=== PATIENT | male | born 1940 | race Caucasian/White ===

== ENCOUNTER 2017-01-23 13:32 | Inpatient (IN) | payer OTHER ==
[~2017-01-23] VITALS: Ht 182.9 cm; Wt 54.4 kg
--- NOTE | ~2017-01-23 | EKG ---
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1940 Requested By: Raudel Ward Order Number: [id number] MD: Adis Tolliver Measurements Intervals [place] Rate: 93 P: 79 SC: 173 QRS: -89 QRSD: 101 T: 78 QT: 361 QTc: 449 Interpretive Statements Sinus rhythm Left anterior hemiblock Anterior infarct, old Compared to ECG 08/14/2016 16:32:08 Right ventricular conduction delay now present atrial premature complexes no longer present Electronically Signed On 01-25-2017 17:48:42 CDT by Adis Tolliver [email or web address] <ELECTRONICALLY SIGNED> By: Adis Tolliver MD, [facility] 01/25/17 1748 1345 1345 Adis Tolliver MD, [facility] /EPI
--- NOTE | ~2017-01-23 | S ---
[facility] [place] [address] SURGICAL PATH RPT PROCEDURE Name: BARTOLOME CARRILLO Room #: 427-P ADM IN M.R.#: [id number] Admission: 01/23/17 Date of : 40 Discharge: Report #: [id number] Path Case #: [id number] PATHOLOGY REPORT COLLECTION DATE: 01/25/2017 RECEIVED DATE: 01/25/2017 SUBMITTING PHYS: Dr. Moises Wheatley OTHER PHYS: Dr. Monika Bull SPECIMEN(S) RECEIVED: A.Gastric bx * * * * * * * * * * * * FINAL DIAGNOSIS: Gastric mucosa, "gastric", endoscopic biopsy: - Mild reactive gastropathy. - Negative for intestinal metaplasia or atrophy. - Negative for Helicobacter pylori. COMMENT: Helicobacter pylori immunohistochemical stain performed on block A1 - negative. (IUV:db; 01/26/2017) PATHOLOGIST: Adrienne Chirinos M.D. REPORT ELECTRONICALLY SIGNED BY: Adrienne Chirinos M.D. DATE/TIME: 01/26/2017 17:13 * * * * * * * * * * * * GROSS PATHOLOGY: Received in formalin labeled "Bartolome Carrillo gastric BX," are three segments of moya soft tissue measuring 1.1 x 0.3 x 0.2 cm in aggregate dimensions and ranging from 0.3 to 0.5 cm in maximum dimension. The specimen is submitted entirely in cassette A1. (TSD; 01/25/2017) CLINICAL HISTORY: Pre-OP DX: Anemia, melena Post-OP DX: Gastritis, hiatal hernia INITIAL CPT CODE(S): A; 16219, 28804 Professional services performed by [facility] at [facility] [address] [place] [address] SURGICAL PATH RPT PROCEDURE Name: PACO CARRILLOTan Smith Room #: 427-P ADM IN .R.#: [id number] Admission: 01/23/17 Date of : 40 Discharge: Report #: [id number] Path Case #: [id number] [address], [place] [address] Technical services performed by [facility] at [address] [place] [address], [facility] [address], [place] [address]. [facility] [address] [place] [address] PHONE: [phone] DIRECTOR: Jose Schmid M.D. * * * END OF REPORT * * *
--- NOTE | ~2017-01-23 | S ---
[facility] [place] [address] SURGICAL PATH RPT PROCEDURE Name: BARTOLOME CARRILLO Room #: 427-P [facility] IN M.R.#: [id number] Admission: 01/23/17 Date of : 40 Discharge: 01/28/17 Report #: [id number] Path Case #: [id number] PATHOLOGY REPORT COLLECTION DATE: 01/27/2017 RECEIVED DATE: 01/28/2017 SUBMITTING PHYS: Dr. Michelle Renee OTHER PHYS: Dr. Monika Bull SPECIMEN(S) RECEIVED: A.Polyp at cecum * * * * * * * * * * * * FINAL DIAGNOSIS: Polyp, at cecum, endoscopic biopsy: - Tubular adenoma. - Negative for high-grade dysplasia. - Stalk base/inked margin with unremarkable mucosa. (IUV:sage; 02/01/2017) PATHOLOGIST: Adrienne Chirinos M.D. REPORT ELECTRONICALLY SIGNED BY: Adrienne Chirinos M.D. DATE/TIME: 02/01/2017 16:36 * * * * * * * * * * * * GROSS PATHOLOGY: Received in formalin labeled "Bartolome Carrillo, polyp at cecum," is a 0.7 x 0.4 x 0.5 cm polypoid piece of moya soft tissue. The margin is inked and the tissue is sectioned perpendicular to the margin and submitted in its entirety in cassette A1. (TSD; 01/28/2017) CLINICAL HISTORY: Pre-OP DX: Anemia Post-OP DX: Colon polyps, diverticulosis INITIAL CPT CODE(S): A; 12176 Professional services performed by [facility] at [facility] [address], [place] [address] Technical services performed by [facility] at [address] [place] [address]. [facility] [address] [place] [address] SURGICAL PATH RPT PROCEDURE Name: BARTOLOME CARRILLO S Room #: 427-P DIS IN .R.#: [id number] Admission: 01/23/17 Date of : 40 Discharge: 01/28/17 Report #: [id number] Path Case #: [id number] [facility] [address] [address] PHONE: [phone] DIRECTOR: Jose Schmid M.D. * * * END OF REPORT * * *
--- NOTE | ~2017-01-23 | P ---
[facility] [place] [address] PROCEDURE REPORT Name: TEA MURPHY Room #: 427-P ADM IN M.R.#: [id number] Admission: 01/23/17 Attend Phys: Monika Posey MD Discharge: Date of : 40 Report #: [id number] THIS REPORT FOR: //name// CC: Monika Bull MD DATE OF SERVICE: 01/27/2017 PATIENT OF: Dr. Monika Posey and Dr. Oscar Bull. PROCEDURE: Colonoscopy with snare polypectomy. INDICATION FOR PROCEDURE: We are evaluating his anemia and iron deficiency. Informed consent for this procedure was obtained prior to the administration of any medication. The risks of the procedure which include bleeding, perforation, infection, complications of sedation and the possibility I could miss something have been explained to the patient and he has indicated his consent by signing. Propofol was slowly titrated before and during this procedure for patient comfort by the anesthesia service. Digital rectal exam was performed and was unremarkable for any abnormalities. The Bilderon colonoscope was introduced through the anal sphincter and advanced under direct visualization to the ileocecal valve and the appendiceal orifice. Findings are noted on withdrawal of the scope. The cecum was identified by the presence of the ileocecal valve and the appendiceal orifice. There is a polyp present in the cecum that is 5 mm in size and sessile in nature and it is removed in toto with a hot snare and sent to pathology lab. Good hemostasis was noted after that polypectomy. No other abnormalities are seen in the cecum. It should be noted that the colon prep was poor and I spent probably an hour cleaning out the liquid black stool that was present in his colon in order to visualize the mucosa adequately. The ascending colonic mucosa appears normal on retroflex view and the ascending colon was normal. Hepatic flexure, normal mucosa. Transverse colon, normal mucosa. Splenic flexure, normal mucosa. Descending colon, uncomplicated diverticulosis is noted. Sigmoid colon, multiple uncomplicated diverticula are noted. Rectum, normal mucosa. Retroflex view did not reveal any abnormalities. The scope was withdrawn. The patient went to the recovery room in stable condition. He tolerated the procedure well. IMPRESSION: 1. Multiple uncomplicated diverticula on the left side of the colon. 2. A 5 mm sessile polyp removed from the cecum as above. [address] [address] PROCEDURE REPORT Name: TEA MURPHY Room #: 427-P [facility] IN ..#: [id number] Admission: 01/23/17 Attend Phys: Monika Posey MD Discharge: Date of : 40 Report #: [id number] Recommendations are to await the path report. We will also give him iron sucrose 200 mg IV today because he is iron deficient. He will need iron, TIBC, ferritin, and CBC every 3 months on a year-around basis from now on so that we can be sure we understand what his iron levels are and if they need to be replaced. It may be necessary for him to stay on oral iron and receive intermittent IV iron to maintain his hemoglobin. The patient refuses M2 capsule because he previously aspirated the M2 capsule into his lungs and it had to be removed by the school occupational therapist during a bronchoscopy. Thank you very much once again for allowing me to participate in his care, Dr. Posey and Dr. Bull. <ELECTRONICALLY SIGNED> By: Michelle Renee DO 01/27/171999 1412 1826 Michelle Renee DO /nt
[~2017-01-23 13:32] MED LIST: ACETAMINOPHEN325 M1 PO; ADVAIR HFA 1112 UNIT INH; ALBUTEROL2.5 MG/0.1 INH; ALLEGRA; ALLEGRA ALLERG180 MG PO; ALLEGRA180 MG PO; ASPIRIN EC325 M1 PO; AUGMENTIN 875875 MG PO; CARAFATE 1 GM TA1 G1 PO; CARDIZEM CD180 MG PO; CARDIZEM CD240 MG PO; COMBIVENT IN; COMBIVENT INH; COMBIVENT RESPIM4 GM INH; DOXYCYCLINE 10100 MG PO; DUONEB 2.5-0.5 M3 ML INH; FAMVIR500 MG PO; FORADIL 1212 MCG/KI1 INH; LEVAQUIN 250 M250 MG PO; LEVAQUIN 500 M500 M2 PO; LEVAQUIN 500 M500 M6 PO; LEVAQUIN 750 M750 MG PO; NEXIUM40 MG PO; NORCO 5-325 TA1 EACH PO; NYSTATIN 1100000 U/M SW&SWALLOW; PEPCID20 MG PO; PRED FORTE 1% EY5 M1 OP; PREDNISONE 10 M10 M1 PO; PREDNISONE 10 M10 MG; PREDNISONE 10 M10 MG PO; PREDNISONE 20 M20 MG PO; PROVENTIL HFA6.7 G1 INH; RAPAFLO8 MG PO; SEREVENT DISKU50 MCG IH; SYMBICORT160 MCG/4. INH; TYLENOL325 MG PO
[2017-01-23 13:33] VITALS: BP 145/90
[2017-01-23 14:30] LABS: HEMATOCRIT 35.8 % (42.0-52.0); HEMOGLOBIN 11.7 gm/dL (14.0-18.0); MCH 29.6 pg (26.0-34.0); MCHC 32.6 g/dL (28.0-37.0); MCV 90.6 fL (80.0-100.0); PLATELET COUNT 424 thou/uL (150-400); RBC 3.95 mil/uL (4.50-6.00); RDW 15.3 % (10.5-14.5); WBC 16.5 thou/uL (4.0-11.0)
[2017-01-23 14:33] LABS: ANION GAP 5 mmol/L (7-16); BUN 29 mg/dL (7-18); CALCIUM 9.2 mg/dL (8.5-10.1); CHLORIDE 104 mmol/L (98-107); CO2 33 mmol/L (21-32); CREATININE 0.7 mg/dL (0.7-1.3); GLUCOSE 108 mg/dL (74-106); SODIUM 142 mmol/L (136-145)
[2017-01-23 14:34] LABS: MANUAL DIFF YES
[2017-01-23 14:46] LABS: APTT 25.4 Seconds (24.5-32.8); PROTIME 10.5 Seconds (9.3-11.4)
[2017-01-23 14:55] LABS: ALBUMIN 3.8 g/dL (3.4-5.0); ALKALINE PHOSPHATASE 74 U/L (46-116); SGOT 22 U/L (15-37); SGPT 15 U/L (30-65); TOTAL BILIRUBIN 0.5 mg/dL (<0.1-1.0); TOTAL PROTEIN 6.7 g/dL (6.4-8.2); TROPONIN-I < 0.04 ng/mL (<0.04-0.07)
[2017-01-23 15:09] LABS: ABSOLUTE NEUTROPHILS 13.7 thou/uL (1.4-8.2); TOTAL CELL COUNT 100
[2017-01-23 15:40] VITALS: BP 134/82
[2017-01-23 16:20] VITALS: BP 140/74
[2017-01-23 20:30] VITALS: BP 115/60
[2017-01-24 04:30] VITALS: BP 128/76
[2017-01-24 04:58] LABS: HEMATOCRIT 30.3 % (42.0-52.0); HEMOGLOBIN 9.9 gm/dL (14.0-18.0); MCH 29.7 pg (26.0-34.0); MCHC 32.9 g/dL (28.0-37.0); MCV 90.3 fL (80.0-100.0); PLATELET COUNT 352 thou/uL (150-400); RBC 3.35 mil/uL (4.50-6.00); RDW 15.3 % (10.5-14.5); WBC 9.3 thou/uL (4.0-11.0)
[2017-01-24 05:16] LABS: MANUAL DIFF YES
[2017-01-24 05:25] LABS: CALCIUM 8.4 mg/dL (8.5-10.1); CREATININE 0.5 mg/dL (0.7-1.3); POTASSIUM 3.8 mmol/L (3.5-5.1)
[2017-01-24 07:32] VITALS: BP 143/81
[2017-01-24 08:38] LABS: ABSOLUTE NEUTROPHILS 8.9 thou/uL (1.4-8.2); TOTAL CELL COUNT 100
[2017-01-24 08:39] LABS: ANISOCYTOSIS 1+; OVALOCYTES 1+
[2017-01-24 16:37] VITALS: BP 131/72
[2017-01-24 20:18] VITALS: BP 121/68
[2017-01-25 04:21] VITALS: BP 124/75
[2017-01-25 04:46] LABS: HEMATOCRIT 28.7 % (42.0-52.0); HEMOGLOBIN 9.5 gm/dL (14.0-18.0); MCH 29.8 pg (26.0-34.0); MCHC 33.2 g/dL (28.0-37.0); MCV 89.8 fL (80.0-100.0); PLATELET COUNT 364 thou/uL (150-400); WBC 15.9 thou/uL (4.0-11.0)
[2017-01-25 04:49] LABS: MANUAL DIFF YES
[2017-01-25 05:10] LABS: CALCIUM 8.4 mg/dL (8.5-10.1); CREATININE 0.9 mg/dL (0.7-1.3)
[2017-01-25 08:44] LABS: ABSOLUTE NEUTROPHILS 15.6 thou/uL (1.4-8.2); PLATELET ESTIMATE NORMAL; TOTAL CELL COUNT 100
[2017-01-25 08:45] LABS: ANISOCYTOSIS SLIGHT
[2017-01-25 10:00] VITALS: BP 154/82
[2017-01-25 16:00] VITALS: BP 135/69
[2017-01-25 20:00] VITALS: BP 143/82
[2017-01-26 05:00] VITALS: BP 134/80
[2017-01-26 06:11] LABS: HEMATOCRIT 27.3 % (42.0-52.0); HEMOGLOBIN 9.3 gm/dL (14.0-18.0); MCH 30.7 pg (26.0-34.0); MCHC 33.9 g/dL (28.0-37.0); MCV 90.4 fL (80.0-100.0); PLATELET COUNT 357 thou/uL (150-400); RBC 3.02 mil/uL (4.50-6.00); RDW 15.4 % (10.5-14.5); WBC 17.5 thou/uL (4.0-11.0)
[2017-01-26 06:17] LABS: MANUAL DIFF YES
[2017-01-26 07:28] VITALS: BP 130/66
[2017-01-26 07:32] LABS: ABSOLUTE NEUTROPHILS 15.2 thou/uL (1.4-8.2); ANISOCYTOSIS 1+; HYPOCHROMASIA 1+; TOTAL CELL COUNT 100
[2017-01-26] MEDS ORDERED: LEVAQUIN 750 M750 MG PO (10:46)
[2017-01-26] MEDS ORDERED: PANTOPRAZOLE SO40 M1 PO (10:46)
[2017-01-26] MEDS ORDERED: PREDNISONE 10 M10 M1 PO (10:46)
[2017-01-26 12:10] LABS: % SATURATION 10 % (20-39); IRON 21 ug/dL (65-175); TIBC 215 ug/dL (250-450); UIBC 194 ug/dL
[2017-01-26 16:27] VITALS: BP 159/77
[2017-01-26 19:35] VITALS: BP 150/81
[2017-01-27 04:32] VITALS: BP 150/77
[2017-01-27 05:17] LABS: HEMATOCRIT 29.8 % (42.0-52.0); HEMOGLOBIN 9.9 gm/dL (14.0-18.0)
[2017-01-27 07:51] VITALS: BP 127/61
[2017-01-27 15:13] VITALS: BP 143/66
[2017-01-27 20:00] VITALS: BP 140/69
[2017-01-28 04:40] VITALS: BP 134/74
[2017-01-28 06:52] LABS: HEMATOCRIT 28.6 % (42.0-52.0); HEMOGLOBIN 9.6 gm/dL (14.0-18.0); MCH 30.2 pg (26.0-34.0); MCHC 33.5 g/dL (28.0-37.0); MCV 90.2 fL (80.0-100.0); RBC 3.17 mil/uL (4.50-6.00); RDW 15.5 % (10.5-14.5); WBC 9.9 thou/uL (4.0-11.0)
[2017-01-28 08:18] VITALS: BP 114/59
[2017-01-28 10:11] VITALS: BP 114/59
[2017-01-28 10:30] VITALS: BP 114/59
== END 2017-01-28 12:38 | disposition home or self-care (01) | DRG 377 ==
LOC: ER 13:32 → 4E 15:21 → EROBS 15:21 → 4E 16:46 → ENTRNSPT 01-28 12:25 → EDTRNSPTSTS 01-28 12:28 → 4E 01-28 12:38
PROVIDERS: Emergency Medicine; Internal Medicine; Internal Medicine Endocrinology, Diabetes & Metabolism; Internal Medicine Gastroenterology
PROC: 0DB68ZX Excision of Stomach, Via Natural or Artificial Opening Endoscopic, Diagnostic (ICD-10-PCS; principal; 2017-01-25)
PROC: 0DBH8ZX Excision of Cecum, Via Natural or Artificial Opening Endoscopic, Diagnostic (ICD-10-PCS; 2017-01-27)
DX: K92.2 Gastrointestinal hemorrhage, unspecified (principal); J18.9 Pneumonia, unspecified organism; E43 Unspecified severe protein-calorie malnutrition; J44.0 Chronic obstructive pulmonary disease with (acute) lower respiratory infection; J44.1 Chronic obstructive pulmonary disease with (acute) exacerbation; J96.11 Chronic respiratory failure with hypoxia; Z68.1 Body mass index [BMI] 19.9 or less, adult; K57.30 Diverticulosis of large intestine without perforation or abscess without bleeding; D12.0 Benign neoplasm of cecum; K29.70 Gastritis, unspecified, without bleeding; K44.9 Diaphragmatic hernia without obstruction or gangrene; D50.0 Iron deficiency anemia secondary to blood loss (chronic); G25.81 Restless legs syndrome; M19.90 Unspecified osteoarthritis, unspecified site; Z87.891 Personal history of nicotine dependence; Z79.899 Other long term (current) drug therapy; Z87.81 Personal history of (healed) traumatic fracture; Z85.46 Personal history of malignant neoplasm of prostate; Z87.11 Personal history of peptic ulcer disease; Z88.1 Allergy status to other antibiotic agents; Z88.8 Allergy status to other drugs, medicaments and biological substances; Z82.5 Family history of asthma and other chronic lower respiratory diseases
CPT/HCPCS: 10183; 62110; 62900; 70005

== ENCOUNTER → 2018-03-06 | Outpatient (CLI) | payer OTHER ==
[~2018-03-06] MED LIST changes: +PANTOPRAZOLE SO40 M1 PO; +PRADAXA150 MG PO
--- NOTE | ~2018-03-06 | PATH ---
[facility] [address] [place] [address] PATHOLOGY RPT PROCEDURE Name: TEA MURPHY Room #: REG LISA Rivers#: [id number] Admission: 03/06/18 Date of : 40 Discharge: Report #: [id number] Path Case #: [id number] Note [facility] Accession Number: [id number] TESTS RESULT FLAG UNITS REF RANGE LAB Clinician Provided Cytology Information No. of containers..01 Other (Miscellaneous) Source: 01 LLL BAL DIAGNOSIS: 02 LEFT LOWER LUNG, BAL NEGATIVE FOR MALIGNANT CELLS. NORMAL BRONCHIAL CELLS AND MACROPHAGES ARE PRESENT. PULMONARY MACROPHAGES (DUST CELLS) ARE PRESENT. THIS INTERPRETATION INCLUDES EVALUATION OF A CELL BLOCK. MARKED ACUTE INFLAMMATION. Signed out by: Adrienne Chirinos MD, Pathologist NPI- [id number] Performed by: Tonny Lindquist, Sleeping Car Conductor ([facility]) Gross description: 01 14ML, WHITE, CLOUDY /LCS FLAG LEGEND: L-Low Normal,H-High Normal,LL-Alert Low,HH-Alert High <-Panic Low,>-Panic High,A-Abnormal,AA-Critical Abnormal Performed at: [address] [place] [address] Ronan Hugo MD, [address] [place] [address] Adrienne Chirinos MD, Specimen Comment: A courtesy copy of this report has been sent to Specimen Comment: [phone]. Specimen Comment: A duplicate report has been generated due to demographic updates. Performed at: [address], [place], [place] [id number] MD Ronan Hugo MD Phone: [phone]
--- NOTE | ~2018-03-06 | PATH ---
[facility] [address] [place] [address] PATHOLOGY RPT PROCEDURE Name: TEA MURPHY Room #: REG LISA Stevenson.#: [id number] Admission: 03/06/18 Date of : 40 Discharge: Report #: [id number] Path Case #: [id number] Note [facility] Accession Number: [id number] TESTS RESULT FLAG UNITS REF RANGE LAB Clinician Provided Cytology Information No. of containers..01 Other (Miscellaneous) Source: LLL BRUSHING DIAGNOSIS: 02 LLL BRUSHING NEGATIVE FOR MALIGNANT CELLS. NORMAL BRONCHIAL CELLS AND MACROPHAGES ARE PRESENT. REACTIVE BRONCHIAL CELLS ARE PRESENT. SCANT CELLULARITY WITH AIR-DRYING ARTIFACT. Signed out by: 02 Adrienne Chirinos MD, Pathologist NPI- [id number] Performed by: 01 Tonny Lindquist, Die Casting Machine Operator ([facility]) FLAG LEGEND: L-Low Normal,H-High Normal,LL-Alert Low,HH-Alert High <-Panic Low,>-Panic High,A-Abnormal,AA-Critical Abnormal Performed at: [address] [place] [address] Ronan Hugo MD, [address] [address] Adrienne Chirinos MD, Specimen Comment: A courtesy copy of this report has been sent to Specimen Comment: [phone]. Specimen Comment: A duplicate report has been generated due to demographic updates. Performed at: [address], [place], [place] [id number] MD Ronan Hugo MD Phone: [phone]
--- NOTE | ~2018-03-06 | PATH ---
[facility] [address] [place] [address] PATHOLOGY RPT PROCEDURE Name: BARTOLOME CARRILLO Room #: REG [facility] M.R.#: [id number] Admission: 03/06/18 Date of : 40 Discharge: Report #: [id number] Path Case #: [id number] [facility] Accession Number: [id number] . 01 Material submitted: . [facility] TISSUE BIOPSY . 01 Clinical history: . Mass . 02 Diagnosis: Lung, left lower lobe, biopsy: - Benign alveolated lung parenchyma as well as benign bronchial mucosa. - No definite malignancy present. - Focal moderate chronic inflammation identified. - Reactive atypical squamous metaplasia overlying bronchial mucosa. LBQ/03/07/2018 . 02 Comment: The concurrent cytology specimen [id number], [id number], and [id number] showed similar findings. Please refer to separate reports for details. (IUV/db; 03/07/18) . 02 Electronically signed: . Adrienne Chirinos MD, Pathologist NPI- [id number] . 01 Gross description: . Received in formalin labeled "Bartolome Carrillo [facility] tissue biopsy," are multiple fragments of needle cores of moya soft tissue measuring 1.7 x 0.3 x 0.1 cm in aggregate dimensions. The specimen is filtered and entirely submitted in cassette A1. (TSD; 03/06/2018) TOB/TOB . 02 Pathologist provided ICD-10: J98.4 . 02 CPT . 314623 Specimen Comment: A courtesy copy of this report has been sent to Specimen Comment: [phone], . Specimen Comment: Report sent to / DR FRANCO Performed at: [address], [place] [id number] [place] [address] [place] [address] PATHOLOGY RPT PROCEDURE Name: BARTOLOME CARRILLO Room #: REG [facility].#: [id number] Admission: 03/06/18 Date of : 40 Discharge: Report #: [id number] Path Case #: [id number] MD Ronan Hugo MD Phone: [phone] Performed at: [address] [address] [place], [place] [id number] MD Adrienne Chirinos MD Phone: [phone]
--- NOTE | ~2018-03-06 | PATH ---
[facility] [address] [place] [address] PATHOLOGY RPT PROCEDURE Name: TEA MURPHY Room #: REG LISA Stevenson.#: [id number] Admission: 03/06/18 Date of : 40 Discharge: Report #: [id number] Path Case #: [id number] Note [facility] Accession Number: [id number] TESTS RESULT FLAG UNITS REF RANGE LAB Clinician Provided Cytology Information No. of containers..01 Other (Miscellaneous) Source: LLL BRUSHING DIAGNOSIS: 02 LLL BRUSHING NEGATIVE FOR MALIGNANT CELLS. NORMAL BRONCHIAL CELLS AND MACROPHAGES ARE PRESENT. PULMONARY MACROPHAGES (DUST CELLS) ARE PRESENT. Signed out by: 02 Ardienne Chirinos MD, Pathologist NPI- [id number] Performed by: 01 Tonny Lindquist, Pulp Grinder ([facility]) FLAG LEGEND: L-Low Normal,H-High Normal,LL-Alert Low,HH-Alert High <-Panic Low,>-Panic High,A-Abnormal,AA-Critical Abnormal Performed at: [address] [place] [address] Ronan Hugo MD, [address] [address] Adrienne Chirinos MD, Specimen Comment: A courtesy copy of this report has been sent to Specimen Comment: [phone]. Specimen Comment: A duplicate report has been generated due to demographic updates. Performed at: [address], [place], [place] [id number] MD Ronan Hugo MD Phone: [phone]
== END | disposition home or self-care (01) ==
LOC: CATH 07:15
DX: J98.4 Other disorders of lung (principal); J44.9 Chronic obstructive pulmonary disease, unspecified; Z88.1 Allergy status to other antibiotic agents; Z88.8 Allergy status to other drugs, medicaments and biological substances; Z79.899 Other long term (current) drug therapy; Z99.81 Dependence on supplemental oxygen; Z87.891 Personal history of nicotine dependence

== ENCOUNTER 2018-03-07 15:26 | Inpatient (IN) | payer OTHER ==
[~2018-03-07] VITALS: Ht 182.9 cm; Wt 55.8 kg
--- NOTE | ~2018-03-07 | EKG ---
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 QUEZADA : 1940 Requested By: Tanmay Brown Order Number: [id number] MD: Alton Parker Measurements Intervals [place] Rate: 122 P: 74 WI: 155 QRS: -87 QRSD: 101 T: -27 QT: 324 QTc: 462 Interpretive Statements Sinus tachycardia Atrial premature complexes Probable left atrial enlargement Left anterior fascicular block LVH with secondary repolarization abnormality Anterior infarct, old Baseline wander in lead(s) V2 Compared to ECG 03/08/2018 16:22:51 Electronically Signed On 03-10-2018 8:19:53 CDT by Alton Parker [email or web address] <ELECTRONICALLY SIGNED> By: Alton Parker MD 03/10/18 0819 171 17 Alton Parker MD /EPI
--- NOTE | ~2018-03-07 | EKG ---
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: KKODJOVI : 1940 Requested By: Js Ness Order Number: [id number] MD: Alton Parker Measurements Intervals [place] Rate: 119 P: 80 WI: 164 QRS: 261 QRSD: 109 T: 10 QT: 351 QTc: 494 Interpretive Statements Sinus tachycardia Left atrial enlargement Left anterior fascicular block Anterolateral infarct, old Baseline wander in lead(s) II,III,aVF Compared to ECG 01/23/2017 13:45:38 Atrial abnormality now present Sinus rhythm no longer present Myocardial infarct finding still present Electronically Signed On 03-07-2018 17:44:53 CDT by Alton Parker [email or web address] <ELECTRONICALLY SIGNED> By: Alton Parker MD 03/07/18 1744 1540 1540 Alton Parker MD /EPI
--- NOTE | ~2018-03-07 | EKG ---
[address] [address] ELECTROCARDIOGRAM REPORT Name: TEA MURPHY Room #: 353-P ADM IN M.R.#: [id number] Admission: 03/07/18 Attend Phys: Tanmay Brown MD Discharge: Date of : 40 Report #: [id number] THIS REPORT FOR: //name// [facility] Test Date: 2018-03-08 Test Time: 16:22:51 Pat Name: TEA MURPHY Department: Room: 353 Gender: M Mediation Commissioner: Sofie QUEZADA : 1940 Requested By: Tanmay Brown Order Number: [id number] MD: Adis Tolliver Measurements Intervals [place] Rate: 88 P: 35 [place]: 170 QRS: -81 QRSD: 105 T: -74 QT: 426 QTc: 516 Interpretive Statements Sinus rhythm Atrial premature complex Inferior infarct, recent Anterior infarct, old Prolonged QT interval Compared to ECG 03/07/2018 15:40:39 Atrial premature complex(es) now present Inferior Q waves are now present Electronically Signed On 03-09-2018 8:41:00 CDT by Adis Tolliver [email or web address] <ELECTRONICALLY SIGNED> By: Adis Tolliver MD, [facility] 03/09/18 0841 162 162 Adis Tolliver MD, [facility] /EPI
--- NOTE | ~2018-03-07 | 2DMMODE ---
[facility] [address] [place] [address] 2 D/M-MODE ECHOCARDIOGRAM Name: TEA MURPHY Room #: 353-P ADM IN M.R.#: [id number] Admission: 03/07/18 Attend Phys: Sofie Marin Discharge: Date of : 40 Date of Service: 03/08/18 1548 Report #: [id number] THIS REPORT FOR: //name// APPROVED REPORT Study performed: 03/08/2018 14:48:28 EXAM: Comprehensive 2D, Doppler, and color-flow Echocardiogram Patient Location: Bedside Room #: [facility] Status: routine BSA: 1.73 HR: 84 bpm BP: 135/71 mmHg Other Information Study Quality: Technically DifficultTechnically Limited Indications Elevated Troponin 2D Dimensions IVSd: 11.44 (7-11mm) LVOT Diam: 22.89 (18-24mm) LVDd: 40.29 mm PWd: 12.92 (7-11mm) Ascending Ao: 36.55 (22-36mm) LVDs: 23.16 (25-40mm) Aortic Root: 35.50 mm Pulmonary Valve PV Peak Donal.: 0.95 m/s PV Peak Gr.: 3.61 mmHg Left Ventricle The left ventricle is normal size. There is normal LV segmental wall motion. Borderline concentric left ventricular hypertrophy. The left ventricular systolic function is normal. The left ventricular ejection fraction is within the normal range. LVEF is 55-60%. This study is not technically sufficient to allow evaluation of the LV diastolic function. Right Ventricle The right ventricle is normal size. The right ventricular systolic function is normal. [facility] [address] [address] 2 D/M-MODE ECHOCARDIOGRAM Name: TEA MURPHY Room #: 353-P ADM IN [facility].#: [id number] Admission: 03/07/18 Attend Phys: Sofie Marin Discharge: Date of : 40 Date of Service: 03/08/18 1548 Report #: [id number] The left atrium size is normal. The right atrium size is normal. Aortic Valve Aortic valve is mildly calcified. No aortic regurgitation is present. There is no aortic valvular stenosis. Mitral Valve The mitral valve is normal in structure. There is no mitral valve regurgitation noted. No evidence of mitral valve stenosis. Tricuspid Valve The tricuspid valve is normal in structure. There is no tricuspid valve regurgitation noted. Pulmonic Valve The pulmonary valve is normal in structure. Trace pulmonic regurgitation. Great Vessels The aortic root is normal in size. The inferior vena cava is dilated with no inspiratory collapse. Pericardium Trace pericardial effusion. <Conclusion> Technically limited study The left ventricular systolic function is normal. There is normal LV segmental wall motion. LVEF is 55-60%. Aortic valve is mildly calcified. No aortic valvular stenosis or insufficiency. The mitral valve is normal in structure. No mitral valve regurgitation Pulmonary artery pressure could not be reliably ascertained Trace pericardial effusion. <ELECTRONICALLY SIGNED> By: Adis Tolliver MD, FACC 03/08/18 1548 1548 1548 Adis Tolliver MD, FACC /INF
[~2018-03-07 15:26] MED LIST changes: -PRADAXA150 MG PO
[2018-03-07 15:27] VITALS: BP 203/119
[2018-03-07 15:44] LABS: ABSOLUTE NEUTROPHILS 13.9 thou/uL (1.4-8.2); BASOPHILS 0.3 % (0.0-2.0); HEMATOCRIT 46.6 % (42.0-52.0); HEMOGLOBIN 15.6 gm/dL (14.0-18.0); LYMPHOCYTES 2.4 % (24.0-44.0); MCH 30.8 pg (26.0-34.0); MCHC 33.6 g/dL (28.0-37.0); MCV 91.7 fL (80.0-100.0); MONOCYTES 1.6 % (1.0-8.0); PLATELET COUNT 456 thou/uL (150-400); POLYS 95.7 % (36.0-66.0); RBC 5.08 mil/uL (4.50-6.00); RDW 15.6 % (10.5-14.5); WBC 14.6 thou/uL (4.0-11.0)
[2018-03-07 15:50] LABS: CALCIUM 9.9 mg/dL (8.5-10.1); CREATININE 0.8 mg/dL (0.7-1.3); POTASSIUM 3.8 mmol/L (3.5-5.1)
[2018-03-07 15:58] LABS: TROPONIN-I 0.42 ng/mL (<0.06)
[2018-03-07 17:25] VITALS: BP 174/91
[2018-03-07 17:53] VITALS: BP 157/89
[2018-03-07 18:33] VITALS: BP 158/87
[2018-03-07 19:25] VITALS: BP 142/87
[2018-03-07 23:40] VITALS: BP 130/79
[2018-03-08 04:40] VITALS: BP 142/83
[2018-03-08 06:14] LABS: HEMATOCRIT 40.5 % (42.0-52.0); MCH 30.1 pg (26.0-34.0); MCHC 32.9 g/dL (28.0-37.0); MCV 91.5 fL (80.0-100.0); RBC 4.43 mil/uL (4.50-6.00); RDW 15.8 % (10.5-14.5); WBC 13.4 thou/uL (4.0-11.0)
[2018-03-08 06:33] LABS: CALCIUM 8.8 mg/dL (8.5-10.1); CREATININE 0.9 mg/dL (0.7-1.3); POTASSIUM 3.6 mmol/L (3.5-5.1); TOTAL BILIRUBIN 0.5 mg/dL (<0.1-1.0); TOTAL PROTEIN 6.3 g/dL (6.4-8.2)
[2018-03-08 07:06] LABS: HEMOGLOBIN 13.3 gm/dL (14.0-18.0)
[2018-03-08 07:37] VITALS: BP 126/68
[2018-03-08 11:20] VITALS: BP 135/71
[2018-03-08 16:29] VITALS: BP 149/80
[2018-03-08 20:00] VITALS: BP 144/93
[2018-03-09 03:40] VITALS: BP 181/93
[2018-03-09 07:48] VITALS: BP 150/89
[2018-03-09 11:15] VITALS: BP 141/77
[2018-03-09 15:11] VITALS: BP 151/88
[2018-03-09 17:46] LABS: HEMATOCRIT 43.2 % (42.0-52.0); HEMOGLOBIN 14.2 gm/dL (14.0-18.0); MCH 29.8 pg (26.0-34.0); MCHC 32.9 g/dL (28.0-37.0); MCV 90.5 fL (80.0-100.0); RBC 4.77 mil/uL (4.50-6.00); RDW 15.1 % (10.5-14.5); WBC 20.3 thou/uL (4.0-11.0)
[2018-03-09 18:08] LABS: TROPONIN-I 0.08 ng/mL (<0.06)
[2018-03-09 19:25] VITALS: BP 152/77
[2018-03-10 03:45] VITALS: BP 142/80
[2018-03-10 07:52] VITALS: BP 141/84
[2018-03-10 09:22] LABS: ABSOLUTE NEUTROPHILS 15.6 thou/uL (1.4-8.2); BASOPHILS 0.5 % (0.0-2.0); EOSINOPHILS 0.2 % (0.0-3.0); HEMATOCRIT 40.3 % (42.0-52.0); HEMOGLOBIN 13.2 gm/dL (14.0-18.0); MCH 29.9 pg (26.0-34.0); MCHC 32.8 g/dL (28.0-37.0); MCV 91.2 fL (80.0-100.0); MONOCYTES 7.3 % (1.0-8.0); PLATELET COUNT 364 thou/uL (150-400); RBC 4.41 mil/uL (4.50-6.00); RDW 15.4 % (10.5-14.5); WBC 17.7 thou/uL (4.0-11.0)
[2018-03-10 09:25] LABS: CALCIUM 8.6 mg/dL (8.5-10.1); CREATININE 0.7 mg/dL (0.7-1.3); POTASSIUM 3.5 mmol/L (3.5-5.1)
[2018-03-10 11:57] VITALS: BP 127/80
[2018-03-10 17:13] VITALS: BP 163/86; BP 170/85
[2018-03-10 20:16] VITALS: BP 199/125
[2018-03-10 20:29] LABS: BE(vivo) 2.9 mmol/L (-2 to +3); HCO3 29.5 mmol/L (22.0-26.0); PCO2 53.1 mmHg (35.0-45.0); PO2 73.6 mmHg (80.0-100.0); pH 7.363 (7.360-7.450); sO2 94.1 % (92.0-98.0)
[2018-03-11 00:20] VITALS: BP 129/82
[2018-03-11 04:00] VITALS: BP 127/76
[2018-03-11 06:14] LABS: HEMATOCRIT 39.8 % (42.0-52.0); HEMOGLOBIN 13.2 gm/dL (14.0-18.0); MCH 30.2 pg (26.0-34.0); MCHC 33.3 g/dL (28.0-37.0); MCV 90.9 fL (80.0-100.0); RBC 4.38 mil/uL (4.50-6.00); RDW 15.1 % (10.5-14.5); WBC 11.5 thou/uL (4.0-11.0)
[2018-03-11 07:10] VITALS: BP 127/78
[2018-03-11 11:29] VITALS: BP 132/78
[2018-03-11 16:35] VITALS: BP 144/89
[2018-03-11 19:27] VITALS: BP 177/101
[2018-03-12 04:32] LABS: HEMATOCRIT 40.8 % (42.0-52.0); HEMOGLOBIN 13.3 gm/dL (14.0-18.0); MCH 29.6 pg (26.0-34.0); MCHC 32.6 g/dL (28.0-37.0); MCV 90.6 fL (80.0-100.0); RBC 4.51 mil/uL (4.50-6.00); WBC 14.7 thou/uL (4.0-11.0)
[2018-03-12 04:40] VITALS: BP 154/94
[2018-03-12 04:45] LABS: CALCIUM 8.9 mg/dL (8.5-10.1); CREATININE 0.6 mg/dL (0.7-1.3); POTASSIUM 3.4 mmol/L (3.5-5.1)
[2018-03-12 11:58] VITALS: BP 140/76
[2018-03-12 12:00] VITALS: BP 140/76
[2018-03-12 15:54] VITALS: BP 128/64
[2018-03-12 19:30] VITALS: BP 130/66
[2018-03-13 03:45] VITALS: BP 151/86
[2018-03-13 07:35] VITALS: BP 142/85
[2018-03-13 11:28] VITALS: BP 145/77
[2018-03-13] MEDS ORDERED: PRADAXA150 MG PO (11:53)
[2018-03-13] MEDS ORDERED: DOXYCYCLINE 10100 MG PO (12:00)
[2018-03-13 12:01] VITALS: BP 145/77
[2018-03-13 12:02] VITALS: BP 145/77
== END 2018-03-13 13:55 | disposition home or self-care (01) | DRG 199 ==
LOC: ER 15:26 → EROBS 17:18 → 3W 17:18 → ENTRNSPT 03-13 13:43 → EDTRNSPTSTS 03-13 13:44 → 3W 03-13 13:55
PROVIDERS: Emergency Medicine; Family Medicine; Internal Medicine Pulmonary Disease
PROC: 0W9B30Z Drainage of Left Pleural Cavity with Drainage Device, Percutaneous Approach (ICD-10-PCS; principal; 2018-03-07)
DX: J95.811 Postprocedural pneumothorax (principal); E43 Unspecified severe protein-calorie malnutrition; J96.21 Acute and chronic respiratory failure with hypoxia; I26.99 Other pulmonary embolism without acute cor pulmonale; J69.0 Pneumonitis due to inhalation of food and vomit; Z68.1 Body mass index [BMI] 19.9 or less, adult; D68.59 Other primary thrombophilia; G25.81 Restless legs syndrome; M19.90 Unspecified osteoarthritis, unspecified site; R91.8 Other nonspecific abnormal finding of lung field; Y83.8 Other surgical procedures as the cause of abnormal reaction of the patient, or of later complication, without mention of misadventure at the time of the procedure; K21.9 Gastro-esophageal reflux disease without esophagitis; Z99.81 Dependence on supplemental oxygen; Z23 Encounter for immunization; Y92.89 Other specified places as the place of occurrence of the external cause; Z87.891 Personal history of nicotine dependence; Z87.81 Personal history of (healed) traumatic fracture; Z85.46 Personal history of malignant neoplasm of prostate; Z87.11 Personal history of peptic ulcer disease; Z79.899 Other long term (current) drug therapy; Z88.1 Allergy status to other antibiotic agents; Z88.8 Allergy status to other drugs, medicaments and biological substances; Z82.5 Family history of asthma and other chronic lower respiratory diseases
CPT/HCPCS: 10879

== ENCOUNTER → 2018-03-22 | Outpatient (CLI) | payer OTHER ==
[~2018-03-22] MED LIST changes: +PRADAXA150 MG PO
== END ==
LOC: RAD 13:37
DX: J93.9 Pneumothorax, unspecified (principal)

== ENCOUNTER → 2018-03-30 | Outpatient (CLI) | payer OTHER | LOC: ULTRA 11:55 → RAD 11:55 | DX: J43.9 Emphysema, unspecified (principal); Z86.711 Personal history of pulmonary embolism ==

== ENCOUNTER 2018-06-01 20:21 | Inpatient (IN) | payer OTHER ==
[~2018-06-01] VITALS: Ht 182.9 cm; Wt 55.8 kg
--- NOTE | ~2018-06-01 | O ---
[facility] [place] [address] OPERATIVE REPORT Name: JEFFREYPACO MATTTan Smith Room #: 427-P ADM IN M.R.#: [id number] Admission: 06/01/18 Attend Phys: Darius Garcia MD Discharge: Date of : 40 Report #: [id number] THIS REPORT FOR: //name// CC: Darius Bull PREOPERATIVE DIAGNOSIS: Right impacted femoral neck fracture. POSTOPERATIVE DIAGNOSIS: Right impacted femoral neck fracture. PROCEDURE PERFORMED: Right hip pinning. SURGEON: Tera Sarmiento M.D. BACK WINDER: Rhoda Dover PA-C. ANESTHESIA: Spinal. FLUIDS: Approximately 800 mL of crystalloid. ESTIMATED BLOOD LOSS: 10 mL. IMPLANTS UTILIZED: Three Synthes 7.3 mm titanium large fragment lag screws. DESCRIPTION OF PROCEDURE: After proper identification of the patient and the operative site in preoperative holding area, the operative site was signed by myself. Anesthesia discussed options with the patient, and they preferred spinal anesthetic if at all possible due to his underlying pulmonary and medical history. The patient was originally seen by my partner, Dr. Clarence Eiwng and his PA Inge Sewell and came in through the Emergency Room last p.m. We reviewed the potential risks, benefits, alternatives and complications from his injury/fracture as well as treatment options. The patient and the family wish to proceed with operative intervention. He has had a left hip pinning on the opposite side. He was brought back to the operative suite after placement of a satisfactory spinal anesthetic. He was carefully positioned on the fracture table. A well-padded boot foot stabilization was utilized with the legs scissored. The hip fracture alignment was otherwise unchanged. It was impacted into a valgus type position, appeared stable. Intraoperative radiographs demonstrated satisfactory fracture pattern for pin placement. The hip was sterilely prepped and draped in usual manner. Final draping was with an Ioban isolation drape. Images were taken. A small sub 1-inch incision was planned after verifying the trajectory of the screws. Skin was incised sharply. Subcutaneous tissues were spread. The IT band was incised longitudinally and lateral aspect of the proximal femur was carefully exposed. The multipin guide was used to place three threaded guide pins in an inverted triangle manner into the femoral head and neck. Care was taken to ensure proper placement in the AP [address] [address] OPERATIVE REPORT Name: TEA MURPHY Room #: 427-P [facility] IN ..#: [id number] Admission: 06/01/18 Attend Phys: Darius Garcia MD Discharge: Date of : 40 Report #: [id number] and lateral planes. Outer cortex was reamed, and a 90 mm screw was inserted inferiorly with two 95 mm screws that were partially threaded superiorly. The screws had good purchase. They were stable. Hip fracture appeared stable. At this point, final implant images were taken in AP, oblique and lateral planes. Incision was thoroughly irrigated with normal saline. Fascia was closed with 0 Vicryl, 2-0 Vicryl for the subcutaneous tissues. Final skin closure was with vishnu. Sterile dressing was applied. He was awakened and transferred to the recovery room in stable condition. Qualified first officer and flight instructor was utilized throughout the entire procedure to aid in the patient's limb positioning, retraction of the soft tissues, instrument passage, closure and dressing application. By: [id number] Tera Sarmiento MD /nt
[2018-06-01 20:21] VITALS: BP 191/101
[2018-06-01] MEDS ORDERED: ACCUNEB SO1.25 MG/1 INH (20:31)
[2018-06-01 21:07] LABS: ABSOLUTE NEUTROPHILS 14.1 thou/uL (1.4-8.2); BASOPHILS 0.2 % (0.0-2.0); EOSINOPHILS 0.2 % (0.0-3.0); HEMATOCRIT 41.2 % (42.0-52.0); HEMOGLOBIN 13.6 gm/dL (14.0-18.0); LYMPHOCYTES 3.7 % (24.0-44.0); MCH 30.1 pg (26.0-34.0); MCHC 32.9 g/dL (28.0-37.0); MCV 91.3 fL (80.0-100.0); MONOCYTES 6.1 % (1.0-8.0); PLATELET COUNT 344 thou/uL (150-400); POLYS 89.8 % (36.0-66.0); RBC 4.52 mil/uL (4.50-6.00); RDW 14.7 % (10.5-14.5); WBC 15.6 thou/uL (4.0-11.0)
[2018-06-01 21:15] LABS: CALCIUM 8.6 mg/dL (8.5-10.1); CREATININE 0.7 mg/dL (0.7-1.3); POTASSIUM 3.6 mmol/L (3.5-5.1)
[2018-06-01 21:16] LABS: INR 1.1; PROTIME 11.2 Seconds (9.3-11.4)
[2018-06-01 21:57] VITALS: BP 172/81
[2018-06-01 22:24] VITALS: BP 177/80
[2018-06-02] VITALS (11 sets, daily range): BP systolic 88–172; BP diastolic 46–91
--- NOTE | 2018-06-02 06:37 | NUR ---
RECEIVED ORDERS FOR POTENTIAL CATH OF PT. PT AT 0600 HAD BLADDER SCAN OF 334. NUMEROUS ATTEMPTS BY PT TO MICTRATE ON HIS OWN WITHOUT SUCCESS. PT STATES HE WANTS TO TRY BEFORE CATH IS DONE. HOURLY ROUNDING. CONSULTS OT ORTHOPEDICS HAS BEEN CALLED IN. PT CAN EXPRESS HIS NEEDS AND CALL FOR PAIN MEDICATIONS WHEN HE PAIN REACHES LEVELS HE CANNOT TOLERATE. PT ALSO NPO SINCE 2400. BED IN LOWEST POSITION.
--- NOTE | 2018-06-02 08:18 | EKG ---
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 : 1940 Requested By: Verito Horton Order Number: [id number] MD: Alton Parker Measurements Intervals [place] Rate: 88 P: 80 ID: [id number] QRS: -88 QRSD: 112 T: 79 QT: 393 QTc: 476 Interpretive Statements Sinus rhythm Probable left atrial enlargement Left anterior fascicular block Left ventricular hypertrophy Anterior infarct, old Compared to ECG 03/09/2018 17:18:53 Electronically Signed On 06-02-2018 8:18:16 CHOIR MEMBER by Alton Parker [email or web address] <ELECTRONICALLY SIGNED> By: Alton Parker MD 06/02/1818 47 47 Alton Parker MD /EPI
--- NOTE | 2018-06-02 10:35 | NUR ---
ASSESSMENT: CM REVIEWED CHART AND MET WITH PATIENT AT THE BEDSIDE. PTS WELL HIS DAUGHTER ARE ALSO PRESENT. PT WAS ADMITTED S/P FALL AND HAS RIGHT HIP FRACTURE. PT IS TO HAVE HIP NAILING TODAY. PT LIVES IN A HOUSE WITH HIS . PT HAS ONE STEP TO ENTER AND NO STEPS ONCE INSIDE. PT IS NORMALLY INDEPENDENT WITH ADLS AND AMBULATION BUT THEY DO HAVE A WALKER AT HOME IF NEEDED. PT HAS OXYGEN SUPPLIED AT HOME. PT REPORTS HAVING A GRAB BAR AND SHOWER CHAIR. PT HAS NOT HAD HH IN THE PAST AND REPORTS SHE IS VERY SUPPORTIVE AND HELPFUL. CM WILL CONTINUE TO FOLLOW TO ASSIST NEEDED.
--- NOTE | 2018-06-02 12:04 | NUR ---
Assumed pt care at 7am.Assessment completed.vss.Received call from [facility] that pt will be seen later today and possibly taken to surgery.Pt and dtr notified.Around 10am Dr Steele called and give order prior to pt left for surgery at 1030 accompanied by dtr and or transporter.Will continue to monitor.
--- NOTE | 2018-06-03 01:33 | NUR ---
PT DENIED PAIN/N/V SO FAR.PT REFUSED TO TAKE HIS LOVENOX AT MD PT STATED THAT THE MEDICATION MAKES HIM HAVE NOSE BLEEDS.PT UNABLE TO URINATE PER URINAL X 3,BLADDER SCAN REVEALED 803CC,ADAIR CATH INSERTED PER ORDER,PT TOLERATED WELL, 900CC OUT WITHIN MINUTES.PT STATED THAT HE FEELS MUCH BETTER.DRSG ON HIS R HIP C/D/I.PT RESTING ON HIS BED AT THIS TIME,CALL LIGHT WITHIN REACH.
[2018-06-03 05:28] VITALS: BP 23/75
[2018-06-03 07:50] VITALS: BP 160/78
[2018-06-03 08:57] LABS: BASOPHILS 0.3 % (0.0-2.0); EOSINOPHILS 0.1 % (0.0-3.0); HEMATOCRIT 39.1 % (42.0-52.0); HEMOGLOBIN 12.8 gm/dL (14.0-18.0); LYMPHOCYTES 2.5 % (24.0-44.0); MCH 29.8 pg (26.0-34.0); MCHC 32.8 g/dL (28.0-37.0); MCV 91.1 fL (80.0-100.0); MONOCYTES 7.6 % (1.0-8.0); PLATELET COUNT 320 thou/uL (150-400); POLYS 89.5 % (36.0-66.0); RBC 4.29 mil/uL (4.50-6.00); WBC 16.8 thou/uL (4.0-11.0)
[2018-06-03 09:07] LABS: CALCIUM 8.7 mg/dL (8.5-10.1); CREATININE 0.8 mg/dL (0.7-1.3); POTASSIUM 4.2 mmol/L (3.5-5.1)
--- NOTE | 2018-06-03 15:21 | NUR ---
Assumed pt care at 7am.Pt in bed resting sound wet early this am.Resp. tx given as ordered with relief.Assessment completed.vss.Regular diet given for breakfast and well tolerated.Dr Bobby here,order noted.Consult called to juany on rehab.Family at most of the time today for visit.Pt ambulated in hallways with therapist,good endurance noted.Will continue to monitor.
[2018-06-03 15:45] VITALS: BP 127/67
[2018-06-03 19:41] VITALS: BP 117/51
--- NOTE | 2018-06-04 05:12 | NUR ---
ASSUMED CARE AT 1900, ASSESSMENT COMPLETED. PT REPORTS SOME PAIN WITH MOVEMENT, BUT REFUSED PAIN MEDS WHEN OFFERED; STATED HIS PAIN WAS MOSTLY WITH MOVEMENT BUT WAS MANAGEABLE. PROVIDED FRESH ICE PACK TO RIGHT HIP. DENIES SOB, REPORTS BREATHING WITHOUT DISTRESS. NO NAUSEA, POOR APPETITE, ENCOURAGED FLUID INTAKE. SOME BLOOD CLOTS IN URINE FROM ADAIR, ABOUT 500 ML URINE OUT OVERNIGHT. NO OTHERE CONCERNS, WILL CONTINUE TO MONITOR.
[2018-06-04 05:25] VITALS: BP 123/69
--- NOTE | 2018-06-04 08:54 | NUR ---
ASSESMENT COMPLETED. VSS. A/O. DENIES PAIN THIS AM. NO NOTED SOA. NO NV. PT RESTING IN BED APPEARS COMFORTABLE. NO CONCERNS VOICED. DRESSING TO RIGHT HIP CDI. ICE PACK IN PLACE. WILL CONT. TO MONITOR.
--- NOTE | 2018-06-04 11:15 | HC ---
[facility] [place] [address] CONSULTATION Name: JEFFREYTEA S Room #: 427-P ADM IN M.R.#: [id number] Admission: 06/01/18 Attend Phys: Darius Garcia MD Discharge: Date of : 40 Report #: [id number] THIS REPORT FOR: //name// CC: Darius Bull DATE OF SERVICE: 06/02/[address] Tera Sarmiento. CHIEF COMPLAINT: Right hip pain. HISTORY OF PRESENT ILLNESS: The patient is a pleasant 78-year-old male who was admitted to [facility] yesterday with complaints of right hip pain status post fall. The patient reports that he was on the sidewalk outside of the [facility] when he stumbled and fell. He complains of immediate pain in the right hip following the fall. The patient denies hitting his head or loss of consciousness. The patient states that he has had 1 prior fall in the last 2 weeks. His family at bedside today feels like he does not lift his feet up as he walks and feels this has contributed to his falls. The patient typically ambulates without assistance. He does have a history of a prior left hip fracture, reporting that this was fixed with 3 pins in his hip. The patient also has a history of lung cancer and prostate cancer. PAST MEDICAL HISTORY: COPD, dyspnea, right hip fracture, GI bleed, pneumothorax following lung biopsy in 02/2018, shortness of breath, history of lung cancer and prostate cancer. ALLERGIES: AMOXICILLIN, AUGMENTIN, PREVACID, KEFLEX, ZITHROMAX. SOCIAL HISTORY: The patient lives with his , typically ambulates without assistance. VITAL SIGNS: Temperature 36.7, pulse 105, blood pressure 172/91, weight 55 kilos, height 182 cm. PHYSICAL EXAMINATION: GENERAL: The patient is awake and alert, in no acute distress. EXTREMITIES: Tenderness to palpation about the right hip, tenderness and pain with attempted range of motion, passive range of motion of the right hip. No tenderness to palpation of the right knee, ankle. Right lower extremity is neurovascularly intact. Left lower extremity is neurovascularly intact. No tenderness to palpation about the hip, knee or ankle. IMAGING: Two views of the right hip and pelvis performed on 06/01/[address] [address] CONSULTATION Name: TEA MURPHY Room #: 427-P [facility] IN .R.#: [id number] Admission: 06/01/18 Attend Phys: Darius Garcia MD Discharge: Date of : 40 Report #: [id number] acute impacted right femoral neck subcapital fracture. No dislocation. ASSESSMENT: Right impacted femoral neck fracture. PLAN: We discussed the patient's diagnosis and treatment options today with the patient, his and daughters at bedside. We discussed performing a right hip percutaneous pinning today. We have discussed the need to limit weightbearing postoperatively as well as the need for followup radiographs to assess fracture healing. The patient will likely need a significant amount of time for physical therapy and will likely be admitted to a shelter facility for physical therapy following the surgery. The patient and his family verbalized understanding and wished to proceed with surgery today. <ELECTRONICALLY SIGNED> By: BRINA Hollis 06/04/18 1115 1138 [id number] BRINA Hollis /nt
[2018-06-04 19:44] VITALS: BP 141/66
--- NOTE | 2018-06-05 03:06 | NUR ---
ASSUMED CARE OF PT AT 2300. PT C/O RIGHT HIP PAIN, RELIEVED WITH PO TYLENOL. C/O MILD SHORTNESS OF AIR WITH EXERTION, NONE AT REST. LUNGS DIMINISHED. HAS APPEARED TO BE SLEEPING WHEN CHECKED ON HOURLY ROUNDS.
[2018-06-05 05:17] VITALS: BP 189/91
[2018-06-05 06:39] LABS: FOLIC ACID 11.5 ng/mL (8.6-58.9)
[2018-06-05 08:23] VITALS: BP 155/67
--- NOTE | 2018-06-05 08:28 | NUR ---
ASSESMENT COMPLETED. VSS. A/O. DENIES PAIN THIS AM. NO NOTED SOA. NO NV. PT RESTING IN BED AT THIS TIME. ANTICIPATING DC TO REHAB. WILL CONT. TO MONITOR.
--- NOTE | 2018-06-05 14:52 | NUR ---
S/W PT, SPOUSE AND DTR KELL IN ROOM AND THEY REALLY WANT TO GO TO [facility] SO SAME DRS CAN FOLLOW HIM THERE. DTR S/W DR LOCKHART AT [facility] RN [facility] AND THEY MAY ASSIST IN REHAB PROCESS. I CALLED AND LEFT MESSAGE FOR [facility] [phone] 1ND FAXED H&P, [facility] CONSULT THERAPY EVALS FOR DR LOCKHART REVIEW [phone]. [facility] HAS SUBMITTED FOR AUTH FROM [facility] ALSO.
--- NOTE | 2018-06-05 16:26 | NUR ---
FAXED REFERRAL TO [facility] SPOKE WITH CHRISS IN ADM. SHE RECEIVED REFERRAL AND WILL REVIEW. NOTIFIED HER TO NOT SUBNIT FOR AUTH YET. TRYING TO SEE IF PT. QUALIFIES FOR ACUTE REHAB STAY. DCP TO FOLLOW.
[2018-06-05 16:30] VITALS: BP 159/74
--- NOTE | 2018-06-05 17:00 | NUR ---
RECEIVED PT FROM . PT IN BED RESTING. DENIES PAIN OR NEED FOR PAIN MEDICATION AT THIS TIME. ADAIR IN PLACE DRAINING DARK YELLOW URINE. O2 PER NC AT 4L. NO OTHER CONCERNS AT THIS TIME.
--- NOTE | 2018-06-05 18:09 | NUR ---
FAMILY AND PT REQUESTED ANXIETY MEDICATION. LORAZEPAM GIVEN ORDERED. PT APPEARS TO HAVE SOME SHORTNESS OF BREATH. PT TO RECEIVE BREATHING TREATMENT AT 1900. WILL CONTINUE TO MONITOR.
[2018-06-05 20:36] VITALS: BP 172/95
[2018-06-06] VITALS (8 sets, daily range): BP systolic 120–186; BP diastolic 66–99
--- NOTE | 2018-06-06 01:49 | NUR ---
PIV inserted on right upper arm after two attempts. Secured in place and flushes easily.
--- NOTE | 2018-06-06 03:37 | NUR ---
PATIENT ALERT AND ORIENTED X4. C/O PAIN IN R HIP FROM SURGERY, DRESSING D/I. C/O HEADACHE. TRAMADOL WAS GIVEN AND HAD SOME RELIEF SO TYLENOL WAS GIVEN WITH GOOD RELIEF. BP AT BEGINNING OF NIGHT WAS HIGH. PT HAD ORDER FOR IV MED BUT DID NOT HAVE IV ACCESS. NO WAS CALLED AND AN ORDER WAS OBTAINED TO CHANGE IV MED TO PO. AT [facility] BP WAS 186/99 AFTER PO MED. CALLED SHIFT SUPERINTENDENT AND TOLD HER THE RESULTS, SHE SAID START IV FOR IV MED. THIS NURSE TRIED X2 WITH NO LUCK. ANOTHER NURSE DID GET IT IN AND IV MED GIVEN. BP JUST PRIOR TO MED WAS 170/92. MED GIVEN AT 0115. AT 0130 BP WAS DOWN TO 140/73. SLEPT MOST OF NIGHT.
[2018-06-06 06:40] LABS: HEMATOCRIT 34.9 % (42.0-52.0); HEMOGLOBIN 11.6 gm/dL (14.0-18.0); MCH 30.2 pg (26.0-34.0); MCHC 33.1 g/dL (28.0-37.0); MCV 91.2 fL (80.0-100.0); RBC 3.83 mil/uL (4.50-6.00); WBC 13.1 thou/uL (4.0-11.0)
--- NOTE | 2018-06-06 08:37 | NUR ---
ASSUMED PT CARE AT 0700. ASSESSED PT AT 0750. PT RESTING IN BED. DENIES PAIN OTHER THAN A HEADACHE RATED 6/10. DENIES COUGHING ANY SPUTUM UP. PT APPEARS TO BE BREATHING LABORED, O2 SAT 98% ON 3L. ASSESSMENT IS CHARTED. VITAL SIGNS STABLE BUT WITH ELEVATED BP. MEDICATION GIVEN FOR B/P. WILL CONTINUE TO MONITOR.
--- NOTE | 2018-06-06 13:19 | NUR ---
dp faxed referral to [facility], dp will call to ensure delivery of fax. Noted on fax "Please do not seek authorization yet as we are waiting to hear from acute rehab first" CM to follow up.
--- NOTE | 2018-06-06 14:10 | NUR ---
PT DOING WELL THIS SHIFT. SAT IN CHAIR MOST OF MORNING AND TOLERATED WELL. ASSISTED PT BACK TO BED AFTER LUNCH WITH MAX 2 PERSON ASSIST. FURTHER TEACHING DONE AT THAT TIME ABOUT WEIGHT BEARING ON HIS LEFT LEG. ONLY PAIN PT REPORTS TODAY IS HEADACHE BEING MANAGED WITH TYLENOL. FLOMAX STARTED TODAY PER DENNIS'S ORDERS. WILL CONTINUE WITH CURRENT POC.
--- NOTE | 2018-06-06 15:08 | NUR ---
on-going assessment: [facility] IS SEEKING AUTH ON PATIENT FOR ACUTE REHAB WHICH IS STILL PENDING. CM SPOKE WITH FAMILY AND IF [facility] IS DENIED THEY NO LONGER WANT PATIENT TO GO TO [facility] AFTER TOURING AND PREFER PT TO GO TO [facility] IF [facility] IS DENIED. JUDITH FROM ADMISSION AT [facility] STATES THEY CAN MEDICALLY ACCEPT PATIENT PENDING INSURANCE AUTH IF [facility] IS DENIED. CM WILL CONTINUE TO [place].
--- NOTE | 2018-06-06 16:47 | NUR ---
on-going assessment: patient was denied [facility] acute rehab, cm notified liason at [facility] who is seeking insurance auth. cm contacted patients reina to update. cm will continue to follow to assist as needed.
--- NOTE | 2018-06-06 16:59 | NUR ---
CALL RECEIVED FROM [facility] WITH DENIAL FOR AUTHORIZATION FOR ACUTE REHAB STAY. REFERENCE #[id number]. PEER TO PEER MUST BE SCHEDULED BY NOON ON 06/07/18. TO SCHEDULE CALL [phone]. EXTENSION ASSOCIATE INFORMED. THANK YOU FOR THIS REFERRAL.
--- NOTE | 2018-06-06 17:36 | NUR ---
PT DOING WELL. UP IN CHAIR EATING DINNER. REPORTS NO PAIN. CONTINUES ON 4L O2. ASSESSED SKIN ON COCCYX AND FOUND TO BE RED WITH NO SKIN BREAKDOWN. ENCOURAGED PT TO BE LYING ON SIDE WHEN IN BED TO AVOID SORES. WILL APPLY BARRIER CREAM WHEN PT GETS UP FROM CHAIR. NO OTHER CONCERNS AT THIS TIME.
--- NOTE | 2018-06-06 18:31 | NUR ---
PT URINE OUTPUT INADEQUATE FOR SHIFT. ONLY 250 ML OF DARK WILLIS URINE. DR COLLINS WAS NOTIFIED AND ORDERED PT TO DRINK 1 WHOLE LITER PITCHER BY MORNING AND RECHECK LABS. FILLED PT'S PITCHER AND INFORMED HIM TO DRINK IT BY MORNING. FAMILY AT BEDSIDE AND IS ENCOURAGING PT TO DO THIS.
--- NOTE | 2018-06-07 05:56 | NUR ---
PT ALERT/ORIENTED, RESTED GOOD, ASSISTED WITH TURNING AND REPOSITIONING MAINTAINING HIP PRECAUTIONS, DRESSING TO RIGHT HIP CDI, ON 3 L OXYGEN PER NC, PT USES OXYGEN AT HOME, NO SOB NOTED, RECEIVES BREATHING TREATMENT, TAKING ORAL FLUIDS WITH NO DIFFICULTY, CONTINUE TO INCREASE ORAL FLUID INTAKE, ADAIR CATH PATENT, DRAINED 650 ML URINE OVERNIGHT, USING CALL LIGHT APPROPRIATELY, HOURLY ROUNDING, MONITORED.
[2018-06-07 06:00] VITALS: BP 146/85
[2018-06-07 06:59] LABS: CALCIUM 8.6 mg/dL (8.5-10.1); CREATININE 0.6 mg/dL (0.7-1.3); POTASSIUM 3.5 mmol/L (3.5-5.1)
[2018-06-07 07:42] VITALS: BP 138/79
--- NOTE | 2018-06-07 11:56 | NUR ---
ASSUMED CARE OF PATIENT THIS MORNING. PATIENT IS ALERT AND ORIENTED X 4. HE IS UP WITH 1 ASSIST NON WEIGHT BEARING RIGHT LEG. HIS ADAIR WAS DC'D THIS MORNING. WILL BLADDER SCAN SHORTLY TO CHECK FOR RESIDUAL. PATIENT GETS Q4H BREATHING TREATMENTS. HE IS ON FALL PRECAUTIONS, HE IS IN THE CHAIR WITH A CHAIR ALARM UNDER HIM. PATIENT WAS ASSESSED THIS MORNING, BREATH SOUNDS WERE DIMINISHED. HE HAS ACTIVE BOWEL SOUNDS, LAST BOWEL MOVEMENT WAS 06/01/18, WILL CHECK WITH THE PHYSICIAN TO SEE WHAT PATIENT CAN HAVE ORALLY. HE HAS A RIGHT A.C. WHICH IS SALINE LOCKED. PATIENT CALLS OUT APPROPRIATELY. CALL LIGHT WITHIN REACH.
--- NOTE | 2018-06-07 14:11 | NUR ---
Joanna from [facility] called to say patient has received authorization. Pt to dc today, when orders are put in, dp will send to [facility]. CC ordered from [facility] on [facility].
[2018-06-07] MEDS ORDERED: ENOXAPARIN30 MG/0.1 SUBQ (14:33)
[2018-06-07] MEDS ORDERED: TRAMADOL 50 MG50 MG PO (14:33)
[2018-06-07] MEDS ORDERED: FLOMAX0.4 MG PO (14:33)
--- NOTE | 2018-06-07 17:04 | NUR ---
PATIENT DISCHARGED TO [facility]. IV DC'D. REPORT CALLED TO FACILITY AND PAPERWORK GIVEN TO WHEELCHAIR VAN TRANSPORTER.
== END 2018-06-07 17:06 | DRG 480 ==
LOC: ER 20:21 → SICU 21:49 → 4E 21:49 → EROBS 21:49 → 4E 22:06 → SICU 06-04 18:28 → 4E 06-04 19:19 → SICU 06-05 17:33
PROVIDERS: Internal Medicine; Nurse Practitioner Family; Student in an Organized Health Care Education/Training Program; ADMIT Hospitalist
PROC: 0QH634Z Insertion of Internal Fixation Device into Right Upper Femur, Percutaneous Approach (ICD-10-PCS; principal; 2018-06-02)
DX: S72.011A Unspecified intracapsular fracture of right femur, initial encounter for closed fracture (principal); E43 Unspecified severe protein-calorie malnutrition; J96.11 Chronic respiratory failure with hypoxia; Z68.1 Body mass index [BMI] 19.9 or less, adult; C34.90 Malignant neoplasm of unspecified part of unspecified bronchus or lung; G25.81 Restless legs syndrome; M19.90 Unspecified osteoarthritis, unspecified site; J44.9 Chronic obstructive pulmonary disease, unspecified; M62.84 Sarcopenia; K59.00 Constipation, unspecified; D72.829 Elevated white blood cell count, unspecified; R33.9 Retention of urine, unspecified; W01.0XXA Fall on same level from slipping, tripping and stumbling without subsequent striking against object, initial encounter; Y93.01 Activity, walking, marching and hiking; Y92.481 Parking lot as the place of occurrence of the external cause; Y99.8 Other external cause status; Z87.891 Personal history of nicotine dependence; Z86.711 Personal history of pulmonary embolism; Z85.118 Personal history of other malignant neoplasm of bronchus and lung; Z87.81 Personal history of (healed) traumatic fracture; Z85.46 Personal history of malignant neoplasm of prostate; Z87.11 Personal history of peptic ulcer disease; Z79.899 Other long term (current) drug therapy; Z88.1 Allergy status to other antibiotic agents; Z88.8 Allergy status to other drugs, medicaments and biological substances; Z82.5 Family history of asthma and other chronic lower respiratory diseases
CPT/HCPCS: 10084; 15002; 50010; 50101; 50386; 51412; 51538; 53400; 53404; 56525; 57092; 62110; 62850; 70005

== ENCOUNTER → 2018-08-23 | Outpatient (CLI) | payer OTHER ==
[~2018-08-23] MED LIST changes: +ACCUNEB SO1.25 MG/1 INH; +ENOXAPARIN30 MG/0.1 SUBQ; +FLOMAX0.4 MG PO; +TRAMADOL 50 MG50 MG PO
== END ==
LOC: CAT 13:58
DX: J43.2 Centrilobular emphysema (principal); I25.10 Atherosclerotic heart disease of native coronary artery without angina pectoris; I71.2 Thoracic aortic aneurysm, without rupture

== ENCOUNTER 2019-01-13 12:43 | Inpatient (IN) | payer OTHER ==
[~2019-01-13] VITALS: Ht 182.9 cm; Wt 49.4 kg
[2019-01-13 12:45] VITALS: BP 116/70
[2019-01-13 13:37] LABS: ABSOLUTE NEUTROPHILS 8.2 thou/uL (1.4-8.2); BASOPHILS 0.7 % (0.0-2.0); EOSINOPHILS 0.3 % (0.0-3.0); HEMATOCRIT 35.9 % (42.0-52.0); HEMOGLOBIN 11.5 gm/dL (14.0-18.0); LYMPHOCYTES 5.8 % (24.0-44.0); MCH 27.3 pg (26.0-34.0); MCV 85.1 fL (80.0-100.0); MONOCYTES 7.5 % (1.0-8.0); PLATELET COUNT 409 thou/uL (150-400); POLYS 85.7 % (36.0-66.0); RBC 4.21 mil/uL (4.50-6.00); RDW 15.6 % (10.5-14.5); WBC 9.5 thou/uL (4.0-11.0)
[2019-01-13 13:43] LABS: CALCIUM 9.4 mg/dL (8.5-10.1); CREATININE 0.7 mg/dL (0.7-1.3)
[2019-01-13 13:49] LABS: ALBUMIN 3.5 g/dL (3.4-5.0); APTT 27.5 Seconds (24.5-32.8); DIRECT BILIRUBIN 0.3 mg/dL (<0.1-0.3); INR 1.1; PROTIME 11.1 Seconds (9.3-11.4); TOTAL BILIRUBIN 0.8 mg/dL (<0.1-1.0); TOTAL PROTEIN 6.8 g/dL (6.4-8.2)
[2019-01-13 15:59] VITALS: BP 146/79
[2019-01-13 16:37] VITALS: BP 146/79
[2019-01-13 17:06] VITALS: BP 160/84
[2019-01-13 17:15] VITALS: BP 99/67
[2019-01-13 18:07] LABS: HEMOGLOBIN 10.4 gm/dL (14.0-18.0); MCH 27.7 pg (26.0-34.0); MCHC 32.5 g/dL (28.0-37.0); MCV 85.4 fL (80.0-100.0); RBC 3.75 mil/uL (4.50-6.00); RDW 15.6 % (10.5-14.5); WBC 10.5 thou/uL (4.0-11.0)
--- NOTE | 2019-01-13 19:31 | NUR ---
patient admit to unit at 1700. a/0 x4. denies pain. two large bloody bm. reported HGB 10.[address] CREWS. NPO NOW TO HAVE NM BLOOD SCAN. WILL KEEP MONITOR.
[2019-01-13 19:35] VITALS: BP 165/80
--- NOTE | 2019-01-13 22:53 | NUR ---
AT 1845 SHIFT CHANGE PT WENT DOWN FOR IR FOR GI SCAN. AT 2120 IR CALLED WITH REPORT THAT PT HAS ACTIVE GI BLEED IN RECTAL AREA. CALLED REPORT TO DR. CREWS. RECEIVED FOLLOWING ORDERS FROM DR. CREWS: 2-1 LITER MIRALAX GIVEN NOW AND ONE GIVEN AT [address] CREWS ALSO ORDERED COLONOSCOPY WITH DR. GONZALEZ IN THE AM. ORDER H&H FOR Q6. AND PUT IN TRANSFUSION ORDER FOR BLOOD IF THE HgB FALLS BELOW 7.0. CONSENTS FOR ALL HAVE BEEN SIGNED.
[2019-01-14] VITALS (7 sets, daily range): BP systolic 123–196; BP diastolic 83–112
[2019-01-14 00:06] LABS: HEMATOCRIT 28.9 % (42.0-52.0); HEMOGLOBIN 9.3 gm/dL (14.0-18.0)
[2019-01-14 07:23] LABS: HEMATOCRIT 28.4 % (42.0-52.0); HEMOGLOBIN 8.8 gm/dL (14.0-18.0)
[2019-01-14 11:56] LABS: HEMATOCRIT 26.6 % (42.0-52.0); HEMOGLOBIN 8.7 gm/dL (14.0-18.0)
--- NOTE | 2019-01-14 19:51 | NUR ---
pt is A&OX3, PT has done colonoscopy today, stop bleeding at rectal, pt is on o2 2l/min/nc, pt's vs and o2sat are stable at this time, pt has 3 times loose stool , but no active bleeding at this time.pt is tolerate full liquid diet, pt denies pain , pt has slowly meeting care plan goals.
[2019-01-15] VITALS: BP 180/112
[2019-01-15 00:45] VITALS: BP 180/104
[2019-01-15 02:21] VITALS: BP 184/106
--- NOTE | 2019-01-15 02:59 | NUR ---
CONTINUES TO HAVE ELEVATED BP, GAVE HYDRALAZINE 10 MG IV. CONTINUES TO HAVE SHORTNESS OF AIR, LYING IN BED. BREATHING TREATMENTS ORDERED. CONTINUES ON 3 LITER N/C. COMPLAINS OF PAIN TO HEAD, GAVE HYDROCODONE. DENIES THAT HE CAN FEEL WHEN HE IS HAVING A BM. DENIES ABDOMINAL PAIN. SPOKE WITH PROVIDER REGARING HIS CARE, INSTRUCTED TO CALL BACK AT 0400 WITH BP.
[2019-01-15 04:38] VITALS: BP 123/67
--- NOTE | 2019-01-15 05:14 | NUR ---
PT HAVING DIFICULTY BREATHING AROUND 0100, O2 SATS STAYED IN THE UPPER 90'S TO 100% ON HIS HOME DOSE OF OXYGEN. HE TOOK A HYDROCODNE FOR PAIN AND HIS SYMPTOMS WERE RELIEVED, INCLUDING HIS BREATHING AND SHORTNESS OF AIR AND HIS HEART RATE AND BLOOD PRESSURE ARE NOW UNDER CONTROL. YOVANY ACHARYA AT THIS TIME.
[2019-01-15 05:49] LABS: HEMATOCRIT 28.4 % (42.0-52.0); MCH 27.3 pg (26.0-34.0); MCHC 31.6 g/dL (28.0-37.0); MCV 86.2 fL (80.0-100.0); RBC 3.29 mil/uL (4.50-6.00); RDW 15.4 % (10.5-14.5); WBC 11.6 thou/uL (4.0-11.0)
--- NOTE | 2019-01-15 13:31 | NUR ---
ASSESSMENT: CM REVIEWED CHART AND MET WITH PATIENT AT THE BEDSIDE. PT WAS ADMITTED WITH POSSIBLE GI BLEED. PT LIVES IN A HOUSE WITH HIS . PT REPORTS 2 STEPS TO ENTER WITH NO HANDRAILS. PT REPORTS AMBULATING USING A ROLLATER WALKER. PT REPORTS HAVING A SHOWER CHAIR FOR AMBULATION. PT HAS OXYGEN ARRANGED AT HOME STATING HE NORMALLY IS ON 3L BUT UNSURE THE PROVIDER. PT REPORTS HE HAS BEEN TO THE [facility] IN THE PAST AND HAD HH AFTER BUT IS UNSURE WHAT THE HH AGENCY WAS. CM ATTEMPTED TO REACH BUT PATIENTS DAUGHTER KELL ANSWERED. SHE CONFIRMED ALL INFORMATION AND IS GOING TO LOOK FOR THE HH PROVIDER HE HAD IN THE PAST. PT/OT TO SEE PATIENT. CM WILL CONTINUE TO FOLLOW TO ASSIST NEEDED.
[2019-01-15] MEDS ORDERED: PAXIL10 MG PO (14:45)
--- NOTE | 2019-01-15 16:18 | P ---
[facility] [place] [address] PROCEDURE REPORT Name: TEA MURPHY Room #: 357-P [facility] IN M.R.#: [id number] Admission: 01/13/19 Attend Phys: Lorin Martínez Discharge: Date of : 40 Report #: [id number] THIS REPORT FOR: //name// CC: Lorin Cullen DATE OF SERVICE: 01/14/2019 PROCEDURE PERFORMED: Flexible sigmoidoscopy. HISTORY OF PRESENT ILLNESS: The patient is a 78-year-old male with bright red blood per rectum, multiple episodes yesterday, drop in hemoglobin. Bleeding scan was positive that showed bleeding from the rectum or distal sigmoid colon. Plan is for colonoscopy. DESCRIPTION OF PROCEDURE: The risks and benefits of the procedure were explained to the patient, those risks including but not limited to bleeding, perforation and the risk of sedation. He understood these risks and gave informed consent. Sedation was given using propofol per anesthesia. Next, a digital rectal exam was performed, which showed a large amount of solid stool within the rectum almost consistent with a fecal impaction. I disimpacted him and removed a large amount of stool digitally. This was all formed stool. No blood was noted. Next using a standard Olympus colonoscope, the scope was placed in the patient's anus and advanced under direct vision into the sigmoid colon. The prep was poor throughout this entire area. Multiple washings and aspirations were performed. I was able to see a few diverticula in the distal sigmoid colon, but again there was no blood anywhere in the colon or rectum, only brown stool. I did not get good visualization in this area. I then brought the scope into the rectum, performed multiple washings and aspirations. In the very distal rectum just above the anal canal, there was a large ulceration with a red spot, likely source of recent bleeding. There was no active bleeding. There was no clot. There appears to be a visible vessel in this area. I did not proceed with a clip or cauterization as this is just near the dentate line and I was concerned this may cause significant pain if this was cauterized. I suspect this may be a solitary rectal ulcer due to fecal impaction and constipation. The patient does have a history of prostate cancer, need to find out more history, however, if this was treated with radiation in the past. At this point, again there was no active bleeding. The scope was then withdrawn and the procedure terminated. The patient tolerated the procedure well. 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 The patient was disimpacted today. Large amount of stool was removed. No active bleeding [facility] [address] [place] [address] PROCEDURE REPORT Name: TEA MURPHY Room #: 357-P [facility] IN M.R.#: [id number] Admission: 01/13/19 Attend Phys: Lorin Martínez Discharge: Date of : 40 Report #: [id number] at this time. RECOMMENDATIONS: 1. Analpram t.i.d. 2. MiraLax b.i.d. 3. If the patient has rebleeding, may need to consider surgical options as this was right in the anal canal. We will consult Surgery today. Thank you for allowing me to participate in his care. <ELECTRONICALLY SIGNED> By: Ang May MD 01/15/19 1618 1129 1627 Ang May MD /nt
--- NOTE | 2019-01-15 16:18 | HC ---
[facility] [place] [address] CONSULTATION Name: TEA MURPHY Room #: 357-P ADM IN M.R.#: [id number] Admission: 01/13/19 Attend Phys: Lorin Martínez Discharge: Date of : 40 Report #: [id number] THIS REPORT FOR: //name// CC: Lorin Cullen DATE OF SERVICE: 01/14/2019 HISTORY OF PRESENT ILLNESS: The patient is a 78-year-old male with new onset bright red blood per rectum noticed yesterday morning. He was evaluated in the Emergency Room. He has passed multiple episodes of bright red blood in the ER and then later last night. He has had a significant drop in his hemoglobin overnight from admit hemoglobin being 11.5, is 8.8 today. He was prepped for colonoscopy today after a bleeding scan was performed yesterday, which was positive, rapid bleeding from the rectum or distal colon. He has not had bright red blood this morning as of yet. He denies any abdominal pain. He had bleeding episode in the past with a known history of AVMs. He underwent an EGD and colonoscopy in 2017 for a lower GI bleed; at that time, both were essentially negative other than diverticulosis noted in the sigmoid colon and a cecal polyp was removed. 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 In fact, he actually underwent a PillCam at one point, but aspirated with the PillCam which needed to be removed in the OR. He was noted to have gastritis on his upper endoscopy. He had been feeling somewhat generalized fatigue recently. He denies any nausea or vomiting. He denies any melena. He does have a history of constipation. He has a history of COPD and wears 2 liters of nasal cannula oxygen on a regular basis. He has been losing weight as well. He denies any chest pain or shortness of breath currently. PAST MEDICAL HISTORY: Previous history of GI bleed; diverticulosis; history of colon polyp; constipation; COPD, O2 dependent; history of pneumonia; diabetes; prostate cancer history. ALLERGIES: PREVACID, KEFLEX, PRILOSEC, ZITHROMAX, AUGMENTIN. REVIEW OF SYSTEMS: As per HPI. MEDICATIONS: Combivent, O2, Tylenol p.r.n., albuterol. SOCIAL HISTORY: Former smoker. He does consume alcohol rarely. FAMILY HISTORY: Negative for colon cancer. PHYSICAL EXAMINATION: VITAL SIGNS: Temperature is 97.8, pulse 98, blood pressure 174/95, respiratory rate is 19. He is on 2 liters of nasal cannula oxygen. [address] [address] CONSULTATION Name: TEA MURPHY Room #: [facility] IN M.R.#: [id number] Admission: 01/13/19 Attend Phys: Lorin Martínez Discharge: Date of : 40 Report #: [id number] GENERAL: He appears somewhat frail, but alert and oriented x 3, in no acute distress. HEENT: Sclerae nonicteric. Oropharynx clear. NECK: Supple. CARDIOVASCULAR: Regular rate. CHEST: With slight decreased breath sounds bilaterally. ABDOMEN: Soft. He is nontender, nondistended, normoactive bowel sounds. EXTREMITIES: No cyanosis, clubbing or edema. LABORATORY DATA: Sodium 142, potassium 4.3, chloride 99, bicarb 37, BUN 28, creatinine is 0.7, glucose 114. AST 15, total bilirubin 0.8, calcium 9.4, magnesium never mind that was old, alkaline phosphatase 108, ALT is 14, total protein 6.8, albumin 3.5. INR 1.1. WBC is 10.5, hemoglobin most recent was 8.8, MCV 85.4, platelet count is 377. ASSESSMENT AND PLAN: Lower gastrointestinal bleed anemia. We will proceed with colonoscopy today for further evaluation. The patient had a positive bleeding scan last night either in the distal sigmoid colon or rectum. We will make further recommendations after endoscopy. Thank you for allowing me to participate in his care. <ELECTRONICALLY SIGNED> By: Ang May MD 01/15/19 1618 [id number] Ang May MD /nt
[2019-01-15 16:46] VITALS: BP 121/62
[2019-01-15 19:19] VITALS: BP 108/59
[2019-01-16 03:33] VITALS: BP 133/63
--- NOTE | 2019-01-16 04:29 | NUR ---
PATIENT IS PROGRESSING SLOWLY IN HIS CARE PLAN. VITAL SIGNS STABLE WITH PATIENT HAVING NO COMPLAINTS OF PAIN OR NAUSEA. MOSTLY ORIENTED, PATIENT IS ABLE TO CALL APPROPRIATELY FOR NEEDS AND PARTICIPATE IN CARE PLAN. BREATHING STABLE EVIDENCED BY SPOT OXYGENATION CHECKS. MULTIPLE EPISODES OF FECAL INCONTINENCE WITH SKIN CARE PROVIDED BY NURSING STAFF. NO EVIDENCE OF BLEEDING. CONTINUE PLAN OF CARE.
[2019-01-16 05:26] LABS: HEMATOCRIT 23.2 % (42.0-52.0); HEMOGLOBIN 7.5 gm/dL (14.0-18.0); MCH 27.3 pg (26.0-34.0); MCHC 32.3 g/dL (28.0-37.0); MCV 84.8 fL (80.0-100.0); RBC 2.74 mil/uL (4.50-6.00); RDW 15.5 % (10.5-14.5); WBC 9.6 thou/uL (4.0-11.0)
[2019-01-16 06:56] VITALS: BP 138/72
[2019-01-16] MEDS ORDERED: HYDROCORT-PRAMO30 G1 RECTAL (09:05)
[2019-01-16] MEDS ORDERED: MIRALAX17 GM PO (09:05)
[2019-01-16] MEDS ORDERED: NORVASC10 MG PO (09:06)
[2019-01-16 13:22] VITALS: BP 138/72
--- NOTE | 2019-01-16 13:36 | NUR ---
ASSESSMENT: CM REVIEWED CHART AND MET WITH PATIENT, HIS , AND DAUGHTER KELL AT THE BEDSIDE. PT HAS ORDERS TO D/C HOME WITH HH. DAUGHTER CALLED INSURANCE AND PATIENT HAD [facility] IN THE PAST AND THEY WISH TO USE THEM AGAIN. CM FAXED REFERRAL TO [facility] AND NOTIFIED THEM OF D/C TODAY.
--- NOTE | 2019-01-16 15:10 | NUR ---
care of pt assumed this am @ ~0700. pt noted to be awake but drowsy this am, awaiting his breakfast, but disappointed that it would only be full liquids. pt noted to be weak and easily fatigued. pt on oxygen, and is at his home baseline. pt's and daughter at late this am. pt informed of impending dc, seen by cm and gi. iv access and tele dc'd. pt w/ a poor appetite for meals, encouraged to consume supplements. pt incontinent of bm today while in bed, family members verbalized concern re: his incontinence "he was not like this am home". pt spoke w/ gi education analyst re: pt's diet while at home. discharge instruction packet and scripts w/ education gone through w/ pt, and daughter. home oxygen here and placed on pt for transport home. pt [facility] where pt's daughter will transport him home.
== END 2019-01-16 15:26 | disposition home health service (06) | DRG 377 ==
LOC: ER 12:43 → 3W 14:47 → EROBS 14:47 → 3W 16:41 → ENTRNSPT 01-16 14:58 → 3W 01-16 15:26
PROVIDERS: Emergency Medicine; Specialist; ADMIT Hospitalist
PROC: 0DJD8ZZ Inspection of Lower Intestinal Tract, Via Natural or Artificial Opening Endoscopic (ICD-10-PCS; principal; 2019-01-14)
DX: K57.31 Diverticulosis of large intestine without perforation or abscess with bleeding (principal); E43 Unspecified severe protein-calorie malnutrition; D62 Acute posthemorrhagic anemia; K62.6 Ulcer of anus and rectum; Z68.1 Body mass index [BMI] 19.9 or less, adult; K27.9 Peptic ulcer, site unspecified, unspecified as acute or chronic, without hemorrhage or perforation; K27.4 Chronic or unspecified peptic ulcer, site unspecified, with hemorrhage; C61 Malignant neoplasm of prostate; J43.9 Emphysema, unspecified; K56.41 Fecal impaction; E87.6 Hypokalemia; M19.90 Unspecified osteoarthritis, unspecified site; I10 Essential (primary) hypertension; F32.9 Major depressive disorder, single episode, unspecified; E53.8 Deficiency of other specified B group vitamins; Z88.1 Allergy status to other antibiotic agents; Z88.8 Allergy status to other drugs, medicaments and biological substances; Z79.1 Long term (current) use of non-steroidal anti-inflammatories (NSAID); Z79.899 Other long term (current) drug therapy; Z82.5 Family history of asthma and other chronic lower respiratory diseases; Z87.891 Personal history of nicotine dependence
CPT/HCPCS: 10080; 10879; 62110; 62900; 70005

== ENCOUNTER 2019-02-02 15:25 | Inpatient (IN) | payer OTHER ==
[~2019-02-02] VITALS: Ht 182.9 cm; Wt 50.0 kg
--- NOTE | ~2019-02-02 | HC ---
[facility] [place] [address] CONSULTATION Name: TEA MURPHY Room #: 431-P ADM IN .R.#: [id number] Admission: 02/02/19 ������������������ Attend Phys: Kaiden Arevalo MD Discharge: ������������������ Date of : 40 Report #: [id number] THIS REPORT FOR: //name// CC: Kaiden [facility] DATE OF SERVICE: 02/05/2019 HISTORY OF PRESENT ILLNESS: The patient is a 78-year-old white male who had a fall, sustained pain down both legs. Apparently was down for approximately one hour. He was noted to have severe buttock pain and pain down both lower extremities. He has been seen by Interventional Radiology. CT scan revealed sacral fracture S1, S2 with angulation and slight offset. He has bilateral sacral wing fractures. He has been diagnosed with pelvic and sacral fractures. He is to undergo a noncontrast MRI of the sacrum. Tentative plan is for sacroplasty tomorrow. Anticoagulants are being held. He does have the prior history of COPD, on 2-3 liters noted to be stable and also has acute urinary retention, which is a new issue and has a Smith catheter in place. He has had an obvious significant functional decline and we are seeing him in rehabilitation medicine consultation. PAST MEDICAL HISTORY: Includes a prior right femoral neck fracture in 05/2018. He has a history of restless legs syndrome, prostate CA, peptic ulcer disease, severe emphysema, and BPH. PAST SURGICAL HISTORY: Includes left inguinal herniorrhaphy, right carpal tunnel release, left hip repair, exploratory laparotomy for AVM, bilateral hernia repair, and lung biopsy. FAMILY HISTORY: Includes COPD and lung disease. HABITS: Past tobacco abuse, quit greater than a year ago. No history of alcohol abuse. SOCIAL HISTORY: Lives with , house, one step garage, 2-3 liters, premorbid walker ambulator. REVIEW OF SYSTEMS: Did not offer any current complaints of chest pain, shortness of breath or abdominal discomfort. His main complaint is his pain in the buttock area and going down both lower extremities. PHYSICAL EXAMINATION: GENERAL: A 78-year-old male, in no obvious distress. He has significant pain with limited movement of his lower body or pelvic area. VITAL SIGNS: Temperature 97.8, pulse 62, respirations 18, and blood pressure 122/69. [address] [address] CONSULTATION Name: TEA MURPHY Room #: 431-P [facility]#: [id number] Admission: 02/02/19 ������������������ Attend Phys: Kaiden Arevalo MD Discharge: ������������������ Date of : 40 Report #: [id number] NEUROLOGIC: The patient is alert, follows basic commands. Nasal prong O2 is in place. HEENT: Facies are symmetric. EXTREMITIES: Functional range of motion of both upper extremities. Strength is grade 4-/5. DTRs are trace to 1. Lower extremities: He does have some discomfort with gentle movement of his lower extremities. No calf swelling. I would grade the strength of his lower extremity at probably 3+/5. Functionally, he was only able to sit at edge of bed for approximately 10 seconds. He does have significant pain complaints over his sacral buttock area. ASSESSMENT: A 78-year-old white male with the following problem list: 1. Pelvic and sacral fracture, status post fall. 2. Pain management issues. 3. Chronic hypoxic respiratory failure. 4. Acute urinary retention. 5. History of prostate cancer. 6. Premorbid walker ambulator. The patient is scheduled for sacroplasty tomorrow. He will have MRI of the sacrum today. We will need to see how he further tolerates his therapies post-procedure. Insurance will need to be checked regarding rehab therapy options. We will be glad to follow along with you. ��������������������������������������������� ���������������������������������������� By: ��������������������������������������������� [id number] Robert Kearns MD /nt
[~2019-02-02 15:25] MED LIST changes: +HYDROCORT-PRAMO30 G1 RECTAL; +MIRALAX17 GM PO; +NORVASC10 MG PO; +PAXIL10 MG PO
[2019-02-02 15:26] VITALS: BP 114/89
[2019-02-02 16:54] LABS: ABSOLUTE NEUTROPHILS 11.7 thou/uL (1.4-8.2); BASOPHILS 0.3 % (0.0-2.0); HEMATOCRIT 28.5 % (42.0-52.0); HEMOGLOBIN 8.9 gm/dL (14.0-18.0); MCH 25.3 pg (26.0-34.0); MCHC 31.2 g/dL (28.0-37.0); MCV 81.1 fL (80.0-100.0); MONOCYTES 7.5 % (1.0-8.0); PLATELET COUNT 430 thou/uL (150-400); POLYS 90.2 % (36.0-66.0); RBC 3.51 mil/uL (4.50-6.00); RDW 16.5 % (10.5-14.5); WBC 12.9 thou/uL (4.0-11.0)
[2019-02-02 17:00] LABS: CALCIUM 8.8 mg/dL (8.5-10.1); CREATININE 0.8 mg/dL (0.7-1.3); POTASSIUM 3.4 mmol/L (3.5-5.1)
[2019-02-02 17:06] LABS: ALBUMIN 3.1 g/dL (3.4-5.0); TOTAL BILIRUBIN 0.5 mg/dL (<0.1-1.0); TOTAL PROTEIN 6.6 g/dL (6.4-8.2)
[2019-02-02 17:55] VITALS: BP 167/85
[2019-02-02 19:50] VITALS: BP 156/90
[2019-02-02 20:19] VITALS: BP 160/89
[2019-02-03 00:04] LABS: % SATURATION 6 % (20-39); IRON 19 ug/dL (65-175); TIBC 295 ug/dL (250-450)
[2019-02-03 00:31] LABS: FOLIC ACID 16.1 ng/mL (8.6-58.9)
[2019-02-03 03:38] VITALS: BP 153/97
--- NOTE | 2019-02-03 07:36 | NUR ---
PATIENT ARRIVED ON UNIT AT 2009 VIA CART ACCOMPANIED BY RYAN LOPEZ. FAMILY JOINED LATER. PATIENT TO BE ON BEDREST FOR NOW D/T FX PELVIS. O2 AT 2L VIA N/C. C/O PAIN IN LOWER BACK RADIATING DOWN THE LEGS. PATIENT IS ALERT AND ORIENTED X4. SLEPT OFF AND ON DURING NIGHT.
[2019-02-03 08:10] VITALS: BP 173/92
[2019-02-03 09:39] LABS: HEMATOCRIT 30.6 % (42.0-52.0); HEMOGLOBIN 9.3 gm/dL (14.0-18.0); MCHC 30.4 g/dL (28.0-37.0); MCV 82.1 fL (80.0-100.0); RBC 3.73 mil/uL (4.50-6.00); RDW 16.3 % (10.5-14.5); WBC 13.6 thou/uL (4.0-11.0)
[2019-02-03 09:47] LABS: CALCIUM 8.9 mg/dL (8.5-10.1); CREATININE 0.9 mg/dL (0.7-1.3); POTASSIUM 4.5 mmol/L (3.5-5.1)
[2019-02-03 17:14] VITALS: BP 105/62
--- NOTE | 2019-02-03 18:28 | NUR ---
REMAINED IN BED HE IS ALERT AND ORIENTED X 4, HAS REQUIRED SEVERAL DOSES OF PAIN MEDICATIONS, WHICH SEEMS TO HAVE HELPED, HE DOES NOT MOVE MUCH DUE TO PAIN, HE IS CONTINENT WITH ADAIR CATH IN PLACE. FAMILY AT BEDSIDE AND AWAITING ON ORTHO TO VISIT. NEUROVASCULAR CHECKS WNL. CONTINUE TO MONITOR FOR SAFETY AND ENCOURAGE MOVEMENT TO PREVENT SKIN ISSUES.
[2019-02-03 20:42] VITALS: BP 109/47
[2019-02-04 04:00] VITALS: BP 122/74
[2019-02-04 05:12] LABS: HEMATOCRIT 25.8 % (42.0-52.0); MCH 25.8 pg (26.0-34.0); MCV 83.4 fL (80.0-100.0); RBC 3.1 mil/uL (4.50-6.00); RDW 16.5 % (10.5-14.5); WBC 10.1 thou/uL (4.0-11.0)
[2019-02-04 05:28] LABS: CALCIUM 8.4 mg/dL (8.5-10.1); CREATININE 0.7 mg/dL (0.7-1.3); MAGNESIUM 2.1 mg/dL (1.8-2.4); POTASSIUM 4.3 mmol/L (3.5-5.1)
--- NOTE | 2019-02-04 07:41 | NUR ---
PATIENT ALERT AND ORIENTED X4. MEDICATED FOR PAIN DURING THE NIGHT. ADAIR TO D/D WITH CLEAR YELLOW URINE. RESTING QUIETLY.
[2019-02-04 09:00] VITALS: BP 110/59
[2019-02-04 15:14] VITALS: BP 110/59
--- NOTE | 2019-02-04 18:30 | NUR ---
PT ASSESSED AT START OF SHIFT. C/O PAIN AND IV AND PO MEDS GIVEN TO HELP. PT TURNED Q2HRS. NEEDS TO BE FED CANNOT SIT UP COMFORTABLY TO EAT HIMSELF. DOZED OFF AND ON THIS SHIFT. AND DTR HERE FOR VISIT.
[2019-02-04 20:14] VITALS: BP 144/61
[2019-02-05 04:32] VITALS: BP 140/69
--- NOTE | 2019-02-05 05:00 | NUR ---
PT IS ALERT AND ORIENTED.CONTINUES TO REPORT PAIN EVERY TIME HE REPOSITIONS IN BED. AT REST, PT REPORTS PAIN AT ZERO.PAIN MEDS GIVEN PRN. VSS. PT MAKES NEEDS KNOWN. AFEBRILE. USES URINAL. WILL CONTINUE WITH POC TILL EOS.
[2019-02-05 07:45] VITALS: BP 122/69
[2019-02-05 09:56] LABS: HEMATOCRIT 28.7 % (42.0-52.0); HEMOGLOBIN 8.8 gm/dL (14.0-18.0); MCH 24.9 pg (26.0-34.0); MCHC 30.8 g/dL (28.0-37.0); RBC 3.54 mil/uL (4.50-6.00); RDW 16.9 % (10.5-14.5); WBC 7.3 thou/uL (4.0-11.0)
--- NOTE | 2019-02-05 14:08 | NUR ---
PT ADMITTED RELATED TO PELVIC FX. CM REVIEWED CHART AND SPOKE WITH CARE TEAM. CM MET WITH PT AND DTR AT BEDSIDE THIS DAY. PT IS A&O X4. CM ROLE INTRODUCED. PT INDICATED HE LIVES IN A HOUSE WITH HIS SPOUSE WITH 2 STEPS TO ENTER AND NO STEPS INSIDE. PT INDICATED HE HAD USED A 4WW AND A SHOWER CHAIR TO ASSIST WITH MOBILITY GLASS LAMINATING OPERATOR. PT INDICATED HE HAS HOME O2 BUT NEITHER HE OR DTR REMEMBER PROVIDER. CHART INDICATED THAT PT HAD BEEN ON SERVICE WITH [facility] IN THE PAST. PT INDICATED HE HOPED TO RETURN HOME [facility]NE MEDICALLY STABLE. CM TO FOLLOW INDICATED WITH DC PLANNING.
[2019-02-05 19:43] VITALS: BP 130/77
--- NOTE | 2019-02-05 19:46 | NUR ---
Assumed pt care at 7am.Assessment completed.vss but pt constantly c/o lower back pain rated bwtween 9 and 10.Both po and iv pain meds given with partial relief.Dr Arevalo here,order noted.Pt will be having sacraplasty in am. Mri done later this afternoon and reviewed with pt and dtr.Will continue to monitor.
[2019-02-06] VITALS (8 sets, daily range): BP systolic 103–150; BP diastolic 56–71
--- NOTE | 2019-02-06 13:55 | NUR ---
Assessment completed.vss.Pt in bed for breakfast.Fair appetite.Medicated pt with morphine ivp early this am with partial relief.Pt kept npo after breakfast for sacraplasty scheduled for 1500 today.Additional po med given 4hours later.Dtr at assisting with care.Consult called to Dr Pate and he rounded on pt this afternoon,order noted.Will continue to monitor.
[2019-02-06 14:20] LABS: CALCIUM 8.5 mg/dL (8.5-10.1); CREATININE 0.5 mg/dL (0.7-1.3); PHOSPHORUS 3.3 mg/dL (2.5-4.9)
--- NOTE | 2019-02-06 17:51 | NUR ---
PATIENT HAD SURGERY TODAY. WILL SEE HOW PATIENT FUNCTIONS WITH THERAPIES TOMORROW TO HELP DETERMINE IF PATIENT MIGHT BE AN ACUTE REHAB CANDIDATE. WILL CONTINUE TO FOLLOW. THANK YOU FOR THIS REFERRAL.
[2019-02-06 21:10] LABS: TESTOSTERONE* 19 ng/dL (264-916)
[2019-02-07 01:08] LABS: CALCIUM IONIZED* 4.8 mg/dL (4.5-5.6)
[2019-02-07 04:20] VITALS: BP 150/91
--- NOTE | 2019-02-07 05:45 | NUR ---
ASSESSMENT COMPLETED.PT DENIED PAIN SO FAR.REPOSITIONED PER PT'S REQUEST PT REF REPOSITIONING SOMETIMES.ADAIR CATH TO DD.PT ON 2L/NC.PT RESTING ON HIS BED AT THIS TIME.FALL PRECAUTIONS IN PLACE,CALL LIGHT WITHIN REACH.
[2019-02-07 08:16] VITALS: BP 115/63
--- NOTE | 2019-02-07 08:16 | HC ---
[facility] [place] [address] CONSULTATION Name: TEA MURPHY Room #: 431-P [facility] IN .R.#: [id number] Admission: 02/02/19 ������������������ Attend Phys: Kaiden Arevalo MD Discharge: ������������������ Date of : 40 Report #: [id number] THIS REPORT FOR: //name// CC: [facility] DATE OF SERVICE: 02/06/2019 ENDOCRINE CONSULTATION NOTE CONSULTING PHYSICIAN: Dr. Cannon. REASON FOR CONSULTATION: Osteoporosis. HISTORY OF PRESENT ILLNESS: This is a 78-year-old male patient who presented to the Emergency Department on 02/02/2019 following a fall that he had at home after which he started experiencing lower back pain. The patient states that he tripped while he was trying to turn and walk, but denies loss of consciousness at the time of that fall. The patient was subsequently admitted for further evaluation and management and was found to have a sacral fracture S1, S2 with angulation and slight offset with posterior displacement of S2 as well as bilateral sacral wing fractures of uncertain chronicity. When asked about his history further, the patient denied having had prior major fractures and is not aware of thyroid or parathyroid disease that has affected him in the past. He has not smoked in 25 years and denies use of alcohol. The patient notes that he has lost weight over the past several months and attributes this to his eating habits, but denies a necessarily suppressed appetite. The patient has no issues with palpitations or controlled hypertension. REVIEW OF SYSTEMS: CONSTITUTIONAL: Fatigue, tiredness, but no fever or chills. HEENT: Negative for sinus pressure, earache or ear drainage. PULMONARY: Occasional shortness of breath and cough, but no hemoptysis. CARDIAC: Negative for chest pain, palpitations, syncope, presyncope. GASTROINTESTINAL: Negative for abdominal pain, nausea, vomiting or changes in bowel movement frequency. NEUROLOGY: Negative for loss of consciousness, seizures or frequent severe headaches. SKIN: Negative for ulceration, rash, but is noted for discoloration due to bruise fajardo. HEMATOLOGY: No bleeding, but easy bruisability. PSYCHOLOGY: Negative for delusions, hallucinations. Otherwise, his review of systems noncontributory unless mentioned in HPI. [address] [address] CONSULTATION Name: TEA MURPHY Room #: 431-P [facility] IN M.R.#: [id number] Admission: 02/02/19 ������������������ Attend Phys: Kaiden Arevalo MD Discharge: ������������������ Date of : 40 Report #: [id number] PAST MEDICAL HISTORY: History of COPD, history of peptic ulcer, history of prostate cancer, hypertension, seasonal allergies, osteoarthritis, benign pulmonary nodule, chronic constipation, depression. ALLERGIES: PREVACID, ZITHROMAX, AUGMENTIN. MEDICATIONS AT HOME: None other than Combivent 1 puff q.i.d., amlodipine, Norvasc 10 mg daily, Paxil 10 mg daily, albuterol q.6 hours p.r.n. PAST SURGICAL HISTORY: Multiple hernial repair surgeries, right carpal tunnel release, left hip fracture in 2007, right hip repair. FAMILY HISTORY: COPD. SOCIAL HISTORY: , has 2 children. Denies current use of tobacco or alcohol. PHYSICAL EXAMINATION: GENERAL: Pleasant elderly male patient who is not in apparent pain or distress. VITAL SIGNS: Blood pressure is 150/71 mmHg, heart rate is 74 beats per minute, respirations 17 per minute, temperature 36.8 degrees. CONSTITUTIONAL: Negative for pain or distress. Appears relatively comfortable. HEENT: Anicteric sclerae. Intact extraocular motions, notes no jaundice. NECK: Supple, without JVD, carotid bruits or lymphadenopathy. LUNGS: Noted for moderate air entry with scattered rales, but not wheezes or crackles. HEART: Regular rate and rhythm, without murmurs or gallops. ABDOMEN: Soft and lax, without tenderness or organomegaly, has active bowel sounds. EXTREMITIES: Lower extremity exam is negative for ankle edema. The patient has good pedal pulses bilaterally. NEUROLOGIC: Awake, alert and oriented to time, place and person. The rest of his examination is nonfocal. SKIN: Noted for extensive bruise fajardo over both upper extremities. PSYCHIATRIC: Awake, alert, appropriate, interactive. Normal mood and affect. LABORATORY DATA: Sodium 142, potassium 4.3, chloride 106, CO2 of 29, anion gap 7, BUN 33, creatinine 0.7, glucose 114, AST 22, lipase 121, total bilirubin 0.5, calcium 8.4, magnesium 2.1, alkaline phosphatase 97, ALT 25, total protein 6.6, albumin 3.1, GFR 109. Lactic acid 1.1. CPK 153. Troponin 0.07. BNP 206. White blood count 7.3, hemoglobin 8.8, hematocrit 28.7, platelets 340. TSH 1.050. Folate 16.1. Vitamin B12 of 465. Hemoglobin A1c 6.0. An MRI study done at the time of admission revealed the presence of sacral [facility] [address] [place] [address] CONSULTATION Name: TEA MURPHY Room #: 431-P [facility] IN M.R.#: [id number] Admission: 02/02/19 ������������������ Attend Phys: Kaiden Arevalo MD Discharge: ������������������ Date of : 40 Report #: [id number] fractures described in the body of the HPI as well as sacral wing fractures. Also noted severe bilateral facet arthropathy and ligamentum flavum hypertrophy at L4-L5 contributing to degenerative changes, sacral neural foramen are widely patent. The impression was that of subacute bilateral sacral insufficiency fractures. Next was chronic 6.0 mm anterior translation of the S1 vertebral body with respect to the S2 vertebral body. No acute sacral fracture, large amount of retained stool in the rectum. A CT scan of the pelvis done, noted a fracture of the right lower L5 transverse process, noted the presence of [address] in the right hip stabilizing subcapital fracture. CT scan report incidentally found a fat density right adrenal mass seen consistent with mild lipoma or adenoma in the right adrenal gland again as well as a low density hepatic mass suggesting a cyst. ASSESSMENT AND PLAN: 1. Osteoporosis. While the occurrence of sacral fractures could not be clinically considered as a major osteoporotic fractures, it is evident after reviewing the patient's chart that he has had at least 1 hip fracture in the past, although he denied having had any major fractures before. That in itself constitutes diagnosis of osteoporosis, which could date back to over 10 years ago. Assuming the clinic label of osteoporosis is accurate, I would like to proceed in the way of ruling out any predisposing causes of osteoporosis, specifically hyperparathyroidism, vitamin D deficiency, hypogonadism, multiple myeloma. Additionally, I would certainly like to obtain a baseline DEXA scan, so that this would serve as a reference point and as a tool to evaluate the efficacy of perspective osteoporosis medicines to be undertaken in the near future. I discussed these variables with the patient and he agreed to proceed as advised. 2. Hyperglycemia. The patient has had blood glucose values that have fallen in the range of glucose intolerance. This is further supported by his hemoglobin A1c of 6.0, which supports a prediabetic state as well. Blood glucose monitoring will remain and a sliding scale will be placed in position for help if necessary. 3. Right adrenal mass. 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 The patient's clinical outlook is certainly not consistent with a cushingoid state. In order to properly evaluate the endocrine outlook of this mass, I will request a plasma metanephrine levels, aldosterone levels and adrenal activity as well. Ideally, such a mass should be followed annually to ensure its size stability. 4. Chronic obstructive pulmonary disease. Stable. He is to continue with the current care. [address] [address] CONSULTATION Name: TEA MURPHY Room #: 431-P [facility] IN .R.#: [id number] Admission: 02/02/19 ������������������ Attend Phys: Kaiden Arevalo MD Discharge: ������������������ Date of : 40 Report #: [id number] 5. Hypertension, on Norvasc 10 mg daily and doing well. He is to continue with the current regimen. I certainly appreciate this consultation. ��������������������������������������������� <ELECTRONICALLY SIGNED> ���������������������������������������� By: Magi Lezama MD ��������������������������������������������� 02/07/19 0816 [id number] 0020 Magi Lezama MD /nt
[2019-02-07 10:38] LABS: URINE BLOOD NEGATIVE (Negative); URINE CLARITY CLEAR; URINE COLOR YELLOW; URINE GLUCOSE-RANDOM* NEGATIVE (Negative); URINE KETONES 1+ (Negative); URINE LEUKOCYTES-REFLEX TRACE (Negative); URINE NITRITE-REFLEX NEGATIVE (Negative); URINE PROTEIN (DIPSTICK) TRACE (Negative); URINE SPECIFIC GRAVITY 1.015 (1.005-1.035)
[2019-02-07 10:39] LABS: ICTOTEST (BILI CONFIRMATORY) Negative (Negative); URINE BILIRUBIN NEGATIVE (Negative)
[2019-02-07 14:07] LABS: 25-HYDROXY TOTAL 14.8 ng/mL (30.0-100.0)
[2019-02-07 16:50] VITALS: BP 121/59
--- NOTE | 2019-02-07 17:38 | NUR ---
DC planning visit made with the pt/his at bedside and dtr Kayla via phone. [facility] is following but pt will likely not be a candidate for acute rehab due to tolerance and participation. SNF recommended by therapy. [facility] listing reviewed at bedside. They are all agreeable to either [facility] or [facility] depending on who has a private room. The pt has [facility] but [facility] is closer for the to drive there. Dc conference planner to fax referrals to both and see which can offer a private room. possible dc ready tomorrow. Pt /family report no bm since last Tuesday. Nursing aware and will f/u with the attending and pt. Care team updated.
[2019-02-07 19:30] VITALS: BP 134/77
--- NOTE | 2019-02-07 19:34 | NUR ---
Assumed care of pt at 0700. Pt a&ox4. On 2L O2. Encouraged pt to to get in the chair multiple times during the day. OT and PT tried as well. Pt states he is in too much pain to move. Pre-medicated with pain medication before moving. Pt only able to dangle at side of bed for a very short time. States he cannot do more and refuses to move. Smith catheter in place. Call light within reach. Report given to mell MORALES.
--- NOTE | 2019-02-08 02:18 | NUR ---
ASSUMED CARE OF PT @1900 PT ASSESSED AT START OF SHIFT WITH C/O PAIN IN BACK AND RT LOWER LEG. PAIN MEDS GIVEN SEE EMAR. MORENO CATHETER IN PLACE. ASKED PT IF ITS OKAY TO TURN TO THE SIDE TO HELP RELIF PRESSURE FROM THE BACK PT STATED IT HURTS TOO MUCH WHEN HE MOVES AND HE IS COMFORTABLE LYING ON HIS BACK PAIN MEDS GIVEN. THIS NURSE ADVICE PT TO TAKE SOME PAIN MEDS IN THE MORNING BEFORE PT SO HE CAN RELIEF SOME PRESSURE OFF FROM BACK. FALL PREC IN PLACE AND CALL LIGHT WITHIN REACH WILL CONT TO MONITOR.
[2019-02-08 03:37] VITALS: BP 113/69
[2019-02-08 05:42] LABS: HEMATOCRIT 24.6 % (42.0-52.0); HEMOGLOBIN 7.7 gm/dL (14.0-18.0); MCH 25.2 pg (26.0-34.0); MCHC 31.5 g/dL (28.0-37.0); MCV 79.9 fL (80.0-100.0); RBC 3.08 mil/uL (4.50-6.00); RDW 16.9 % (10.5-14.5); WBC 6.6 thou/uL (4.0-11.0)
[2019-02-08 06:03] LABS: CALCIUM 8.1 mg/dL (8.5-10.1); CREATININE 0.5 mg/dL (0.7-1.3); POTASSIUM 4.2 mmol/L (3.5-5.1)
[2019-02-08 07:49] VITALS: BP 126/68
[2019-02-08 08:50] VITALS: BP 126/68
--- NOTE | 2019-02-08 11:01 | NUR ---
[facility] sent referral and therapy to [facility], spoke with Rosemarie in admissions, she will elt us know if they can accept.
[2019-02-08 13:12] LABS: GLOBULIN TOTAL 2.8 g/dL (2.2-3.9); M-SPIKE Not Observed g/dL (Not Observed)
[2019-02-08] MEDS ORDERED: IRON325 PO (13:37)
[2019-02-08] MEDS ORDERED: FLOMAX0.4 MG PO (13:37)
[2019-02-08] MEDS ORDERED: HYDROCODON-ACE1 EAC7 PO (13:38)
--- NOTE | 2019-02-08 16:24 | NUR ---
CARE TEAM INDICATED THAT PT IS MEDICALLY STABLE TO DC TO [facility] THIS DAY. CM COMPLETED [id number] AND [facility] FORM. CHART COPIED. ORDERES FAXED. TRANSPORT ARRANGED WITH [facility]IA [facility] AT 1730 WITH 2.5 L O2. CM NOTIFIED PT, SPOUSE, AND DTR. THEY ARE ALL AWARE AND AGREEABLE. NO OTHER CM INTERVETNION INDICATED. CASE CLOSED.
--- NOTE | 2019-02-08 18:08 | NUR ---
Assumed pt care at 7am.Pt in bed most of the time today refused turning but took all meds and feed self at all meals.Assessment completed.vss.Pain meds given x2 this shift with relief.Dr Toscano here,dc order noted.partnership manager arranged for pt dc to [facility] per ambulance.Report off to Akira goyal. Smith cath and saline lock dc'd.Pt will be leaving before shift change.Will continue to monitor.
[2019-02-10 18:08] LABS: RENIN 0.761 ng/mL/hr (0.167-5.380)
== END 2019-02-08 19:17 | DRG 515 ==
LOC: ER 15:25 → 4E 18:45 → EROBS 18:45 → 4E 19:55
PROVIDERS: Emergency Medicine; Hospitalist; Internal Medicine; Nurse Practitioner Acute Care; ADMIT Internal Medicine
PROC: 0QU13JZ Supplement Sacrum with Synthetic Substitute, Percutaneous Approach (ICD-10-PCS; principal; 2019-02-06)
DX: S32.10XA Unspecified fracture of sacrum, initial encounter for closed fracture (principal); E43 Unspecified severe protein-calorie malnutrition; S32.82XA Multiple fractures of pelvis without disruption of pelvic ring, initial encounter for closed fracture; J96.11 Chronic respiratory failure with hypoxia; Z68.1 Body mass index [BMI] 19.9 or less, adult; J43.9 Emphysema, unspecified; D50.0 Iron deficiency anemia secondary to blood loss (chronic); E87.6 Hypokalemia; C61 Malignant neoplasm of prostate; R33.8 Other retention of urine; G25.81 Restless legs syndrome; M19.90 Unspecified osteoarthritis, unspecified site; F32.9 Major depressive disorder, single episode, unspecified; N40.0 Benign prostatic hyperplasia without lower urinary tract symptoms; M81.0 Age-related osteoporosis without current pathological fracture; E27.9 Disorder of adrenal gland, unspecified; Z66 Do not resuscitate; K56.41 Fecal impaction; E78.5 Hyperlipidemia, unspecified; E55.9 Vitamin D deficiency, unspecified; Z85.46 Personal history of malignant neoplasm of prostate; Z87.11 Personal history of peptic ulcer disease; Z88.1 Allergy status to other antibiotic agents; Z88.8 Allergy status to other drugs, medicaments and biological substances; Z87.891 Personal history of nicotine dependence; Z83.6 Family history of other diseases of the respiratory system; Z99.81 Dependence on supplemental oxygen; Z47.89 Encounter for other orthopedic aftercare; W01.0XXA Fall on same level from slipping, tripping and stumbling without subsequent striking against object, initial encounter; Y93.89 Activity, other specified; Y92.89 Other specified places as the place of occurrence of the external cause; Y99.8 Other external cause status
CPT/HCPCS: 10084

== ENCOUNTER 2019-06-04 16:56 | Emergency (ER) | payer OTHER ==
[~2019-06-04] VITALS: Ht 182.9 cm; Wt 49.9 kg
[~2019-06-04 16:56] MED LIST changes: +HYDROCODON-ACE1 EAC7 PO; +IRON325 PO
[2019-06-04 18:04] LABS: ABSOLUTE NEUTROPHILS 9.5 thou/uL (1.4-8.2); BASOPHILS 0.9 % (0.0-2.0); EOSINOPHILS 0.1 % (0.0-3.0); HEMATOCRIT 38.3 % (42.0-52.0); HEMOGLOBIN 12.1 gm/dL (14.0-18.0); LYMPHOCYTES 5.6 % (24.0-44.0); MCH 26.5 pg (26.0-34.0); MCHC 31.7 g/dL (28.0-37.0); MCV 83.7 fL (80.0-100.0); MONOCYTES 7.8 % (1.0-8.0); PLATELET COUNT 441 thou/uL (150-400); POLYS 85.6 % (36.0-66.0); RBC 4.57 mil/uL (4.50-6.00); RDW 19.8 % (10.5-14.5); WBC 11.1 thou/uL (4.0-11.0)
[2019-06-04 18:09] LABS: ANION GAP 5 mmol/L (7-16); BUN 27 mg/dL (7-18); CALCIUM 9.6 mg/dL (8.5-10.1); CHLORIDE 100 mmol/L (98-107); CO2 36 mmol/L (21-32); CREATININE 0.7 mg/dL (0.7-1.3); GLUCOSE 146 mg/dL (74-106); POTASSIUM 3.7 mmol/L (3.5-5.1); SODIUM 141 mmol/L (136-145)
[2019-06-04 18:20] LABS: ALBUMIN 3.7 g/dL (3.4-5.0); SGOT 17 U/L (15-37); SGPT 22 U/L (30-65); TOTAL BILIRUBIN 0.3 mg/dL (<0.1-1.0); TOTAL PROTEIN 8.1 g/dL (6.4-8.2); TROPONIN-I <0.06 ng/mL (<0.06)
[2019-06-04 20:00] VITALS: BP 145/81
--- NOTE | 2019-06-05 07:55 | EKG ---
[place] [address] [facility] [employer] [address] ELECTROCARDIOGRAM REPORT Name: TEA MURPHY Room #: [facility]#: [id number] Admission: 06/04/19 Attend Phys: Discharge: 06/04/19 Date of : 40 Report #: [id number] THIS REPORT FOR: //name// [facility] ED Test Date: 2019-06-04 Test Time: 18:08:45 Pat Name: TEA MURPHY Department: Room: Gender: Webbing Supervisor: ROMEO : 1940 Requested By: Inderjit Kaba Order Number: [id number] MD: Alton Parker Measurements Intervals [place] Rate: 108 P: 83 PA: 176 QRS: 267 QRSD: 107 T: 86 QT: 355 QTc: 476 Interpretive Statements Sinus tachycardia Biatrial enlargement Left anterior fascicular block Nonspecific T abnormalities, lateral leads Compared to ECG 06/01/2018 20:48:01 Electronically Signed On 06-05-2019 7:54:45 [employer] by Alton Parker [email or web address] <ELECTRONICALLY SIGNED> By: Alton Parker MD 06/05/19 0754 07 07 Alton Parker MD /CRISTIAN
== END 2019-06-04 20:15 | disposition home or self-care (01) ==
LOC: ER 16:56
PROVIDERS: Physician Assistant
DX: R60.9 Edema, unspecified (principal); M19.90 Unspecified osteoarthritis, unspecified site; G25.81 Restless legs syndrome; Z87.891 Personal history of nicotine dependence; Z85.46 Personal history of malignant neoplasm of prostate; Z88.1 Allergy status to other antibiotic agents; Z88.8 Allergy status to other drugs, medicaments and biological substances